=== PATIENT | male | born 1955 | race Caucasian/White ===

== ENCOUNTER → 2016-09-11 | Outpatient (CLI) | payer BC ==
[~2016-09-11] MED LIST: B-CO1CAP5 PO; FISHOIL PO; LOSA1TAB38 PO; MULTTAB PO; PANT1TAB48 PO
--- NOTE | 2016-09-11 11:45 | DIAGNOSTIC IMAGING REPORT ---
CHEST 2 VIEWS ROUTINE CLINICAL HISTORY: R05 [id number] dyspnea COMPARISON STUDY: 02/03/2015 FINDINGS: The bones soft tissues and hemidiaphragms are normal. The cardiomediastinal silhouette is normal. The lungs are clear. The pulmonary vasculature is normal. IMPRESSION: Negative chest. Electronically signed by: Maximilian Chu M.D. 09/11/2016 11:44 AM Dictated Date/Time: 09/11/2016 11:43 AM
== END | disposition home or self-care (01) ==
LOC: C.RADBC 11:20
PROVIDERS: ATTEND Internal Medicine Geriatric Medicine
DX: R05 Cough (principal)

== ENCOUNTER → 2017-10-26 | Outpatient (CLI) | payer BC ==
[~2017-10-26] MED LIST changes: +PANT1TAB3 PO; -PANT1TAB48 PO
[2017-10-26 13:48] LABS: HEMOGLOBIN A1C 6.5 % (4.5-5.6)
[2017-10-26 14:05] LABS: ALBUMIN 3.6 gm/dl (3.4-5.0); ALKALINE PHOSPHATASE 74 U/L (45-117); ALT/SGPT 41 U/L (12-78); AST/SGOT 21 U/L (15-37); BLOOD UREA NITROGEN 24 mg/dl (7-18); CALCIUM 9.1 mg/dl (8.5-10.1); CARBON DIOXIDE 25 mmol/L (21-32); CHOLESTEROL 206 mg/dl (0-200); CREATININE 1.59 mg/dl (0.60-1.40); GLUCOSE 121 mg/dl (70-99); LDL CHOLESTEROL CALCULATED 125 mg/dl; POTASSIUM 3.7 mmol/L (3.5-5.1); SODIUM 138 mmol/L (136-145); TOTAL PROTEIN 7.4 gm/dl (6.4-8.2)
== END | disposition home or self-care (01) ==
LOC: C.LABBC 10:25
PROVIDERS: ATTEND Family Medicine Adult Medicine
DX: Z00.00 Encounter for general adult medical examination without abnormal findings (principal); I10 Essential (primary) hypertension; E78.5 Hyperlipidemia, unspecified; R73.03 Prediabetes; C61 Malignant neoplasm of prostate; M79.673 Pain in unspecified foot

== ENCOUNTER 2019-06-19 16:39 | Observation (INO) ==
[2019-06-19] MEDS ORDERED: SODIUM CHLORIDE 0.9% 1000ML 1,000 ML IV ONE (16:53)
--- NOTE | 2019-06-19 16:57 | Emergency Department Note ---
Impression & Plan Chest pain on exertion, Hypertension, Hyperlipidemia, Family history of coronary artery disease ED Provider Note NAME: DIA CHIRINOS AGE: 64 SEX: M ARRIVES VIA: Ambulance INFORMANT: Patient, ED PROVIDER(S): Kris Shultz MD CHIEF COMPLAINT: Chest pain PLAN: Disposition: Admit MEDICAL DECISION MAKING: The patient is a pleasant 64-year-old gentleman with a past medical history of hypertension, hyperlipidemia, prediabetes, spinal stenosis, family history of early coronary disease who presents emergency department after having severe substernal chest pain and shortness of breath that came on suddenly with near syncope/dizziness prior to arrival seen by EMS and given aspirin and nitro with resolution of symptoms. The patient reports over the past week he has had exertional chest pain and fullness in his neck that is new. The patient denies any recent fevers, chills, cough, congestion, nausea, vomiting, diarrhea. Denies any recent high risk travel related to the novel coronavirus. He denies any known contacts with lab confirmed individuals. On arrival the patient is in no acute distress, afebrile stable vital signs. His EKG is normal sinus without overt ST elevation or depression. While the patient reports he is asymptomatic at this time he did have a 1-2-second episode where he felt a "twinge" that resolved spontaneously. Repeat EKG after approximately 20 minutes was unchanged. Chest x-ray negative for acute process. WBC and platelets within normal limits. H/H 13.3/30.6 similar to prior range of values. Chemistry without acidosis. Creatinine 1.5 similar to prior range of values. Electrolytes and LFTs unremarkable. Troponin negative/undetectable. Given the patient's risk factors including family history, Heart score 6, moderate risk, reasonable to admit the patient for further evaluation. The patient is agreeable with this. Case was discussed with Dr. Coronel, [facility] [place] hospitalist, who will evaluate the patient for admission. Triage Nursing notes reviewed and agree them. Prior medical records reviewed Vital Signs: reviewed and remarkable for no significant abnormalities Differential diagnosis: Cardiac ischemia, aortic dissection, pulmonary embolism, pneumothorax, pneumonia, pericarditis, myocarditis, esophageal rupture, GERD, cholecystitis, pancreatitis, musculoskeletal, as well as other pathologies. ER treatment provided: See below. Diagnostics interpreted by me: ECG #1: Normal sinus rhythm with sinus arrhythmia, 60 bpm, normal axis, no ectopy, no overt ST elevation or depression. QTc 440, QRS 104. ECG #2: Sinus bradycardia, 57 bpm, normal axis, no ectopy, no overt ST elevation or depression. QTc 436, QRS 104. No significant change from prior. Cardiac Monitoring: Normal sinus rhythm, 80 bpm, no ectopy. Laboratory studies: See below Imaging studies: XR chest 1V portable CLINICAL HISTORY: Chest Pain pain COMPARISON STUDY: 02/03/2015 FINDINGS: The bones soft tissues and hemidiaphragms are normal. The cardiomediastinal silhouette is normal. The lungs are clear. The pulmonary vasculature is normal. IMPRESSION: Negative chest. Consultation(s): None HPI: The patient is a pleasant 64-year-old gentleman with a past medical history of hypertension, hyperlipidemia, prediabetes, spinal stenosis, family history of early coronary disease who presents emergency department after having severe substernal chest pain and shortness of breath that came on suddenly with near syncope/dizziness prior to arrival seen by EMS and given aspirin and nitro with resolution of symptoms. The patient reports over the past week he has had exertional chest pain and fullness in his neck that is new. The patient denies any recent fevers, chills, cough, congestion, nausea, vomiting, diarrhea. Denies any recent high risk travel related to the novel coronavirus. He denies any known contacts with lab confirmed individuals. ROS: See above HPI for pertinent positives & negatives. A total of 10 systems reviewed and were otherwise negative. PAST MEDICAL HISTORY:See Below PAST SURGICAL HISTORY:See Below FAMILY HISTORY:See Below SOCIAL HISTORY:See Below HOME MEDICATIONS:See Below ALLERGIES:See Below VITALS:See Below PHYSICAL EXAMINATION: GENERAL: Awake, alert, anxious-appearing, in no distress HENT: Normocephalic, atraumatic. Oropharynx with dry mucous membranes and otherwise unremarkable. EYES: Normal conjunctiva. Sclera non-icteric. NECK: Supple. No nuchal rigidity. FROM. No JVD. RESPIRATORY: Clear to auscultation. CARDIAC: Regular rate, normal rhythm. Extremities warm and well perfused. Pulses equal. ABDOMEN: Soft, non-distended. No tenderness to palpation. No rebound or guarding. No masses. RECTAL: Deferred. MUSCULOSKELETAL: Chest examination reveals no tenderness. The back is symmetrical on inspection without obvious abnormality. There is no CVA tenderness to palpation. No joint edema. LOWER EXTREMITIES: Calves are equal size bilaterally and non-tender. No edema. No discoloration. NEURO: Normal sensorium. No sensory or motor deficits noted. SKIN: No rash or jaundice noted. 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 Na Required: No Beliefs That Will Affect Care: None marital status: Current Living Situation: Spouse current occupational status: employed Other Information That Helps Us Care for You: No Feels Safe at Home: Yes Safety Concerns: Feels Safe At This Time Smoking Status: Never smoker Hx Alcohol Use: Yes Alcohol type: beer, wine and hard liquor Alcohol Intake Frequency: Rarely Hx Substance Use: No Childhood Exposure to Second-Hand Smoke: Yes Dental Care, Regularly: Yes Physical Activity Frequency: Does not Exercise Seatbelt Use: always Sunscreen Use: Yes Allergies Allergies Allergy/AdvReac Type Severity Reaction Status Date / Time No Known Allergies Allergy Unknown Verified 06/19/19 17:46 Home Meds Home Medications Medication Instructions Recorded Confirmed multivit with min-folic 1 tab PO DAILY 10/18/18 06/19/19 acid-lutein 400 mcg-250 mcg chewable tablet omega-3 fatty acids-fish oil 360 1 cap PO DAILY 10/18/18 06/19/19 mg-1,200 mg capsule vitamin B complex 1 cap PO DAILY 10/18/18 06/19/19 atorvastatin 20 mg PO QAM 06/19/19 06/19/19 Previous Rx's Medication Instructions Recorded amlodipine 5 mg tablet 2.5 mg PO QAM #90 tab 03/18/20 losartan 100 mg tablet 100 mg PO DAILY #90 tab 06/04/19 pantoprazole 40 mg tablet,delayed 40 mg PO QDB #90 tab 06/04/19 release Results & Data (ED) Vital Signs Vital Signs - 24 hr 06/19/19 16:43 06/19/19 16:52 06/19/19 17:00 Temperature Temperature Source Pulse Rate 71 70 Pulse Rate from SpO2 Sensor 70 68 Respiratory Rate 22 18 Blood Pressure 151/85 H 138/75 Blood Pressure Mean 105 97 Pulse Oximetry 99 99 Oxygen Delivery Method Room Air Sepsis Recent Fever Within 48 Hours Sepsis Action Taken by Nursing 06/19/19 17:07 06/19/19 17:30 06/19/19 18:00 Temperature 36.8 C Temperature Source Oral Pulse Rate 66 61 63 Pulse Rate from SpO2 Sensor 65 64 Respiratory Rate 20 16 12 Blood Pressure 151/85 H 130/71 143/75 H Blood Pressure Mean 107 80 94 Pulse Oximetry 99 96 97 Oxygen Delivery Method Room Air Sepsis Recent Fever Within 48 Hours No Sepsis Action Taken by Nursing No Action Required 06/19/19 18:30 06/19/19 19:00 Temperature Temperature Source Pulse Rate 70 62 Pulse Rate from SpO2 Sensor 70 Respiratory Rate 16 12 Blood Pressure 163/82 H 143/78 H Blood Pressure Mean 104 96 Pulse Oximetry 98 Oxygen Delivery Method Sepsis Recent Fever Within 48 Hours Sepsis Action Taken by Nursing Laboratory Data Attestation: I reviewed the patient's lab results. Result diagrams: 06/19/19 16:55 06/19/19 16:55 Lab Results 06/19/19 06/19/19 06/19/19 Range/Units 16:55 16:55 16:55 WBC 5.90 (4.8-10.8) K/uL RBC 4.35 L (4.7-6.1) M/uL Hgb 13.3 L (14.0-18.0) g/dL Hct 38.6 L (42-52) % MCV 88.7 (80-100) fL MCH 30.6 (25-34) pg MCHC 34.5 (32-36) g/dL RDW Std Deviation 46.6 H (36.4-46.3) fL RDW Coeff of [place] 14.3 (11.5-14.5) % Plt Count 191 (130-400) K/uL MPV 10.3 (7.4-10.4) fL Immature Gran % (Auto) 0.0 % Neut % (Auto) 73.4 % Lymph % (Auto) 15.6 % [place] % (Auto) 8.6 % Eos % (Auto) 1.7 % Baso % (Auto) 0.7 % Immature Gran # (Auto) 0.00 (0.00-0.02) K/uL Neut # (Auto) 4.33 (1.4-6.5) K/uL Lymph # (Auto) 0.92 L (1.2-3.4) K/uL [place] # (Auto) 0.51 (0.11-0.59) K/uL Eos # (Auto) 0.10 (0-0.5) K/uL Baso # (Auto) 0.04 (0-0.2) K/uL PT 11.8 (9.0-12.0) Seconds INR 1.1 (0.9-1.1) APTT 23.4 (21.0-31.0) Seconds PTT Ratio 0.8 Sodium 143 (136-145) mmol/L Potassium 3.6 (3.5-5.1) mmol/L Chloride 113 H (98-107) mmol/L Carbon Dioxide 24 (21-32) mmol/L Anion Gap 5.0 (3-11) BUN 21 H (7-18) mg/dl Creatinine 1.59 H (0.6-1.4) mg/dl Est Cr Clr Drug Dosing 48.7 ml/min Est GFR ( Amer) 51.7 Est GFR (Non-Af Amer) 44.6 BUN/Creatinine Ratio 13.1 (10-20) Glucose 144 H (70-99) mg/dl Calcium 8.6 (8.5-10.1) mg/dl Phosphorus 2.6 (2.5-4.9) mg/dl Magnesium 2.4 (1.8-2.4) mg/dl Total Bilirubin 1.5 H (0.2-1) mg/dl AST 15 (15-37) U/L ALT 29 (12-78) U/L Alkaline Phosphatase 53 (45-117) U/L Troponin I < 0.015 (0-0.045) ng/ml Total Protein 6.3 L (6.4-8.2) gm/dl Albumin 3.5 (3.4-5.0) gm/dl Globulin 2.8 (2.5-4.0) gm/dl Albumin/Globulin Ratio 1.2 (0.9-2) Lipase 101 (73-393) U/L TSH 0.528 (0.300-4.500) uIu/ml Hepatitis C Ab Screen (Neg) 06/19/19 Range/Units 16:55 WBC (4.8-10.8) K/uL RBC (4.7-6.1) M/uL Hgb (14.0-18.0) g/dL Hct (42-52) % MCV (80-100) fL MCH (25-34) pg MCHC (32-36) g/dL RDW Std Deviation (36.4-46.3) fL RDW Coeff of [place] (11.5-14.5) % Plt Count (130-400) K/uL MPV (7.4-10.4) fL Immature Gran % (Auto) % Neut % (Auto) % Lymph % (Auto) % [place] % (Auto) % Eos % (Auto) % Baso % (Auto) % Immature Gran # (Auto) (0.00-0.02) K/uL Neut # (Auto) (1.4-6.5) K/uL Lymph # (Auto) (1.2-3.4) K/uL [place] # (Auto) (0.11-0.59) K/uL Eos # (Auto) (0-0.5) K/uL Baso # (Auto) (0-0.2) K/uL PT (9.0-12.0) Seconds INR (0.9-1.1) APTT (21.0-31.0) Seconds PTT Ratio Sodium (136-145) mmol/L Potassium (3.5-5.1) mmol/L Chloride (98-107) mmol/L Carbon Dioxide (21-32) mmol/L Anion Gap (3-11) BUN (7-18) mg/dl Creatinine (0.6-1.4) mg/dl Est Cr Clr Drug Dosing ml/min Est GFR ( Amer) Est GFR (Non-Af Amer) BUN/Creatinine Ratio (10-20) Glucose (70-99) mg/dl Calcium (8.5-10.1) mg/dl Phosphorus (2.5-4.9) mg/dl Magnesium (1.8-2.4) mg/dl Total Bilirubin (0.2-1) mg/dl AST (15-37) U/L ALT (12-78) U/L Alkaline Phosphatase (45-117) U/L Troponin I (0-0.045) ng/ml Total Protein (6.4-8.2) gm/dl Albumin (3.4-5.0) gm/dl Globulin (2.5-4.0) gm/dl Albumin/Globulin Ratio (0.9-2) Lipase (73-393) U/L TSH (0.300-4.500) uIu/ml Hepatitis C Ab Screen Neg (Neg) Administered Medications Lactated Ringer's (Lr) 1,000 mls @ 80 mls/hr IV .[id number] Stop: 07/19/19 20:32 Last Admin: 06/19/19 21:35 Dose: 80 mls/hr Documented by: [id number] Discontinued Medications Clopidogrel Bisulfate (Plavix) 600 mg PO NOW STA Stop: 06/19/19 20:34 Last Admin: 06/19/19 21:35 Dose: 600 mg Documented by: [id number] Sodium Chloride (Nss 1000ml) 1,000 mls @ 999 mls/hr IV .[id number] ONE Stop: 06/19/19 17:53 Last Infusion: 06/19/19 18:40 Dose: 0 mls/hr Documented by: [id number] Admin: 06/19/19 17:30 Dose: 999 mls/hr Documented by: [id number] Blood Pressure Blood Pressure Findings: Elevated blood pressure Blood Pressure Disposition: further management by hospitalist Discharge Plan Visit Data *Final* Discharge Date/Time: 06/19/19 19:54 Chief Complaint: Chest Pain ED Provider: Kris Shultz Discharge Problem: Chest pain on exertion, Hypertension, Hyperlipidemia, Family history of coronary artery disease Patient Disposition: Admitted As Inpatient Discharge Instructions Interventions: ED Discharge Assessment Last Done: 06/19/19 19:54
--- NOTE | 2019-06-19 17:04 | XRay Report ---
XR chest 1V portable CLINICAL HISTORY: Chest Pain pain COMPARISON STUDY: 02/03/2015 FINDINGS: The bones soft tissues and hemidiaphragms are normal. The cardiomediastinal silhouette is n ormal. The lungs are clear. The pulmonary vasculature is normal. IMPRESSION: Negative chest. ACT 112: Negative or not required by law. The above report was generated using voice recognition software. It may contain grammatical, syntax or spelling errors. Electronically signed by: Maximilian Chu M.D. 06/19/2019 5:02 PM
[2019-06-19 17:06] LABS: Basophils # (auto) 0.04 K/uL (0-0.2); Basophils % (auto) 0.7 %; Eosinophils % (auto) 1.7 %; Hematocrit (blood only) 38.6 % (42-52); Hemoglobin 13.3 g/dL (14.0-18.0); Lymphocytes # (auto) 0.92 K/uL (1.2-3.4); Lymphocytes % (auto) 15.6 %; Mean Corpuscular Hemoglobin 30.6 pg (25-34); Mean Corpuscular Hgb Conc 34.5 g/dL (32-36); Mean Corpuscular Volume 88.7 fL (80-100); Mean Platelet Volume 10.3 fL (7.4-10.4); Monocytes # (auto) 0.51 K/uL (0.11-0.59); Monocytes % (auto) 8.6 %; Neutrophils # (auto) 4.33 K/uL (1.4-6.5); Neutrophils % (auto) 73.4 %; Platelet Count 191 K/uL (130-400); RDW Coefficient of Variation 14.3 % (11.5-14.5); RDW Standard Deviation 46.6 fL (36.4-46.3); Red Blood Count 4.35 M/uL (4.7-6.1)
[2019-06-19 17:21] LABS: Alanine Aminotransferase 29 U/L (12-78); Albumin Level 3.5 gm/dl (3.4-5.0); Aspartate Aminotransferase 15 U/L (15-37); BUN Creatinine Ratio 13.1 (10-20); Blood Urea Nitrogen 21 mg/dl (7-18); Calcium 8.6 mg/dl (8.5-10.1); Carbon Dioxide 24 mmol/L (21-32); Chloride 113 mmol/L (98-107); Creatinine Clr Calc Pharmacy 48.7 ml/min; Est GFR (African American) 51.7; Est GFR (Non-African American) 44.6; Glucose 144 mg/dl (70-99); Lipase 101 U/L (73-393); Magnesium 2.4 mg/dl (1.8-2.4); Potassium 3.6 mmol/L (3.5-5.1); Sodium 143 mmol/L (136-145)
[2019-06-19 17:22] LABS: INR 1.1 (0.9-1.1); Partial Thromboplastin Ratio 0.8; Partial Thromboplastin Time 23.4 Seconds (21.0-31.0); Prothrombin Time 11.8 Seconds (9.0-12.0)
[2019-06-19 17:32] LABS: Albumin Globulin Ratio 1.2 (0.9-2); Alkaline Phosphatase 53 U/L (45-117); Bilirubin,Total 1.5 mg/dl (0.2-1); Globulin 2.8 gm/dl (2.5-4.0); Phosphorus 2.6 mg/dl (2.5-4.9); Thyroid Stimulating Hormone 0.528 uIu/ml (0.300-4.500); Total Protein 6.3 gm/dl (6.4-8.2); Troponin I < 0.015 ng/ml (0-0.045)
--- NOTE | 2019-06-19 18:53 | History & Physical Report ---
Date of Service June 19, 2019 Assessment & Plan (1) Chest pain: Chest pain sounds fairly convincing for anginal symptoms. The event today could be an escalation of his stable angina vs. increasingly unstable angina. Fortunately, his EKG and troponin both do not indicate acute ischemia. - Discussed with Dr. Anderson this evening -> Will load with Plavix 600 mg once and trend troponins/EKGs - If he bumps a troponin, will start heparin gtt for presumed NSTEMI. Will be made NPO @ midnight in case he needs a cath. - If troponin remains stable, will have cardiology evaluate him in the morning to consider cath vs. exercise stress echo. - Continue ASA 81mg & statin. Will defer beta-stanford at this time for HR in the 50s already. (2) Hypertension: BP is 170/85 in the setting of high stress and anxiety over work and his symptoms. - Continue home amlodipine and losartan - Monitor (3) Hyperlipidemia: - Continue statin - Consider higher dose if he has no contraindications given risk factors for CAD (4) GERD (gastroesophageal reflux disease): Had a history of an ulcer ~10-15 years ago while on aspirin. - Continue PPI - Monitor for symptoms. (5) DVT prophylaxis: SCDs - Low DVT risk per admission calculator History of Present Illness Primary Care Provider: Torey Glasgow MD 64yo M w/ hx of HTN, HLD who presents with anginal symptoms. He reports that he has been under more stress at work and working more. He reports that he has noted increasing shortness of breath and some left jaw pain that has occurred with walking up and down steps; however, it quickly has self-resolved. This afternoon, he reports that he was at work and was physically active at work. He was going up and down steps. In the afternoon, he had an episode of chest pain with radiation to the left jaw and left armpit. He was lightheaded at the time and fell/leaned against a wall for support. He also notes some palpitations and nausea at the time, though he has had a somewhat upset stomach from stress over the last few weeks anyhow. EMS was called and administered nitroglycerin and aspirin which relieved the pain. He was then taken to the hospital. He had a brief "twinge" of chest pain in the ED, but is presently chest pain free. He has never had any cardiac testing in the past. He has had multiple family members with cardiac events in the 50s. Allergies Allergy/AdvReac Type Severity Reaction Status Date / Time No Known Allergies Allergy Unknown Verified 06/19/19 17:46 Home Medications Home Medications Medication Instructions Recorded Confirmed Type multivit with min-folic 1 tab PO DAILY 10/18/18 06/19/19 History acid-lutein 400 mcg-250 mcg chewable tablet omega-3 fatty acids-fish oil 360 1 cap PO DAILY 10/18/18 06/19/19 History mg-1,200 mg capsule vitamin B complex 1 cap PO DAILY 10/18/18 06/19/19 History amlodipine 5 mg tablet 2.5 mg PO QAM #90 tab 06/04/19 06/19/19 Rx losartan 100 mg tablet 100 mg PO DAILY #90 tab 06/04/19 06/19/19 Rx pantoprazole 40 mg tablet,delayed 40 mg PO QDB #90 tab 06/04/19 06/19/19 Rx release atorvastatin 20 mg PO QAM 06/19/19 06/19/19 History Past Med/Surg History Medical History Colonic polyp (Chronic) Duodenal stenosis (Chronic) GERD (gastroesophageal reflux disease) (Chronic) Hyperlipidemia (Chronic) Hypertension (Chronic) Pre-diabetes (Chronic) Prostate cancer (Chronic) Surgical History History of bunionectomy History of prostatectomy Hx of foot surgery Family History Mother Hypertension Denies family history of Ovarian cancer Prostate cancer Breast cancer Lung cancer Colorectal cancer Social History Preferred Language: Stateless Visual Impairment: Limited Hearing Ability: Normal Hand Umbrella Tipper Required: No Beliefs That Will Affect Care: None marital status: Current Living Situation: Spouse current occupational status: employed Other Information That Helps Us Care for You: No Feels Safe at Home: Yes Safety Concerns: Feels Safe At This Time Smoking Status: Never smoker Hx Alcohol Use: Yes Alcohol type: beer, wine and hard liquor Alcohol Intake Frequency: Rarely Hx Substance Use: No Childhood Exposure to Second-Hand Smoke: Yes Dental Care, Regularly: Yes Physical Activity Frequency: Does not Exercise Seatbelt Use: always Sunscreen Use: Yes Review of Systems Review of Systems: All systems reviewed & are unremarkable except as noted in HPI & below Physical Exam Constitutional: WD/WN, vitals as above Eyes: EOM intact bilaterally; no conjunctival abnormality ENMT: external ear and nose normal, oropharynx normal Neck: trachea midline, no thyromegaly normal visual inspection Respiratory: normal respiratory effort, lungs clear to auscultation no respiratory distress Cardiovascular: RRR, no murmur, no edema Gastrointestinal (Abdomen): Inspection/Auscultation: abdomen normal to inspection; abdomen not distended Musculoskeletal: no cyanosis or clubbing, extremities motor strength 5/5 Skin: no rashes, warm and dry Neurologic: moves all extremities and awake Psychiatric: Orientation: alert, oriented to person and cooperative Results & Data Results & Data ([facility]) Vital Signs (Past 12 Hours) Vital Signs Temp Pulse Resp BP Pulse Ox 06/19/19 18:30 70 16 163/82 H 98 06/19/19 18:00 63 12 143/75 H 97 06/19/19 17:30 61 16 130/71 96 06/19/19 17:07 36.8 C 66 20 151/85 H 99 06/19/19 17:00 70 18 138/75 99 06/19/19 16:43 71 22 151/85 H 99 PG Care Time/CCT Total # of Minutes Spent Total Time Spent with Patient: Total time spent is greater than 50% in coordination of care (as documented) at patient's floor/unit and/or counseling patient: Coding Level of Care Code 23072 OBS Care - Level 3 Diagnoses Chest pain R07.9 Hypertension I10 Hypertension type: essential hypertension Hyperlipidemia E78.2 Hyperlipidemia type: mixed hyperlipidemia GERD (gastroesophageal reflux disease) K21.9 DVT prophylaxis Z29.9 (1) Hypertension Hypertension type: essential hypertension Qualified Code(s): I10 - Essential (primary) hypertension (2) Hyperlipidemia Hyperlipidemia type: mixed hyperlipidemia Qualified Code(s): E78.2 - Mixed hyperlipidemia
[2019-06-19] MEDS ORDERED: ACETAMINOPHEN 325 MG TAB PO PRN (20:33)
[2019-06-19] MEDS ORDERED: CLOPIDOGREL BISULFATE 300 MG TAB PO STA (20:33)
[2019-06-19] MEDS ORDERED: ONDANSETRON INJ 2 MG/ML 2 ML VIAL IV PRN (20:33)
[2019-06-19] MEDS ORDERED: INFLUENZA VACCINE HIGH DOSE 65+ 0.5 ML SYR IM ONE (20:49)
[2019-06-19] MEDS ORDERED: INFLUENZA ADMINISTRATION CHARGE ONE (20:49)
[2019-06-19] MEDS: LACTATED RINGER'S 1,000 ML IV SCH (21:35)
[2019-06-20 06:06] LABS: Hematocrit (blood only) 37.7 % (42-52); Hemoglobin 12.6 g/dL (14.0-18.0); Mean Corpuscular Hemoglobin 29.9 pg (25-34); Mean Corpuscular Hgb Conc 33.4 g/dL (32-36); Mean Corpuscular Volume 89.3 fL (80-100); Mean Platelet Volume 10.3 fL (7.4-10.4); Platelet Count 165 K/uL (130-400); RDW Coefficient of Variation 14.3 % (11.5-14.5); RDW Standard Deviation 47.1 fL (36.4-46.3); Red Blood Count 4.22 M/uL (4.7-6.1); White Blood Count 5.59 K/uL (4.8-10.8)
[2019-06-20 06:38] LABS: BUN Creatinine Ratio 16.7 (10-20); Blood Urea Nitrogen 19 mg/dl (7-18); Calcium 8.4 mg/dl (8.5-10.1); Carbon Dioxide 28 mmol/L (21-32); Chloride 112 mmol/L (98-107); Creatinine Clr Calc Pharmacy 69.7 ml/min; Est GFR (African American) 79.8; Est GFR (Non-African American) 68.8; Glucose 96 mg/dl (70-99); Magnesium 2.4 mg/dl (1.8-2.4); Potassium 3.6 mmol/L (3.5-5.1); Sodium 143 mmol/L (136-145)
[2019-06-20 06:42] LABS: Phosphorus 3.8 mg/dl (2.5-4.9); Troponin I < 0.015 ng/ml (0-0.045)
[2019-06-20] MEDS ORDERED: PANTOprazole 40 MG TAB PO SCH (07:30)
[2019-06-20] MEDS: LACTATED RINGER'S 1,000 ML IV SCH (08:22)
[2019-06-20] MEDS ORDERED: AMLODIPINE BESYLATE 5 MG TAB PO SCH (09:00)
[2019-06-20] MEDS ORDERED: LOSARTAN POTASSIUM 50 MG TAB PO SCH (09:00)
[2019-06-20] MEDS ORDERED: ATORVASTATIN 20 MG TAB PO SCH (09:00)
[2019-06-20] MEDS ORDERED: ASPIRIN 81 MG ECTAB PO SCH (09:00)
--- NOTE | 2019-06-20 12:55 | Cardiology Consultation ---
Date of Consultation June 20, 2019 Assessment & Plan (1) Chest pain: The patient's description of chest discomfort has typical and atypical features of angina pectoris. Will investigate this further with a stress echocardiogram. Fortunately, EKGs and troponins are unremarkable. (2) Hypertension: Adequate control on current regimen. (3) Hyperlipidemia: Continue atorvastatin. History of Present Illness Attending Physician: Lamonte Egan DO History of Present Illness Mr. Lui is a 64-year-old male admitted with a chest pain syndrome yesterday. This consultation was ordered to assist in his management. The patient was in his usual state of health until yesterday afternoon. The patient was at work and began to feel anxious due to a stressful situation. The patient walked to his desk and sat down in the chair. He then the sensation of fatigue and he lowered himself to the ground. While lying on the floor, he noticed left-sided chest discomfort which she describes as cat claws in the inner wall of my chest. The patient felt that his discomfort may have radiated to his jaw. Total duration of his discomfort was less than 15 minutes. Over the last several weeks, the patient has been more short of breath with physical activity such as climbing stairs. He has not experienced any exertional angina pectoris. He further denies syncope, presyncope, PND, orthopnea, palpitations, lower extremity edema, and claudication. The patient has never known of a cardiac event. He has never had a cardiac catheterization. Did have a stress test several years ago which was normal. Currently, patient is resting comfortably in bed without complaints. Past medical and surgical history 1. Hypertension 2. Hypercholesterolemia 3. Hyperglycemia 4. GERD 5. De's esophagus next 6. Duodenal stenosis 7. Nephrolithiasis 8. Colonic polyps 9. Prostate carcinoma 10. 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 Allergies Allergy/AdvReac Type Severity Reaction Status Date / Time No Known Allergies Allergy Unknown Verified 06/19/19 17:46 Home Medications Home Medications Medication Instructions Recorded Confirmed Type multivit with min-folic 1 tab PO DAILY 10/18/18 06/19/19 History acid-lutein 400 mcg-250 mcg chewable tablet omega-3 fatty acids-fish oil 360 1 cap PO DAILY 10/18/18 06/19/19 History mg-1,200 mg capsule vitamin B complex 1 cap PO DAILY 10/18/18 06/19/19 History amlodipine 5 mg tablet 2.5 mg PO QAM #90 tab 06/04/19 06/19/19 Rx losartan 100 mg tablet 100 mg PO DAILY #90 tab 06/04/19 06/19/19 Rx pantoprazole 40 mg tablet,delayed 40 mg PO QDB #90 tab 06/04/19 06/19/19 Rx release atorvastatin 20 mg PO QAM 06/19/19 06/19/19 History Patient History Medical History Colonic polyp (Chronic) Duodenal stenosis (Chronic) GERD (gastroesophageal reflux disease) (Chronic) Hyperlipidemia (Chronic) Hypertension (Chronic) Pre-diabetes (Chronic) Prostate cancer (Chronic) Surgical History History of bunionectomy History of prostatectomy Hx of foot surgery Family History Mother Hypertension Denies family history of Ovarian cancer Prostate cancer Breast cancer Lung cancer Colorectal cancer Social History Preferred Language: Syriac Visual Impairment: Limited Hearing Ability: Normal Title Attorney Required: No Beliefs That Will Affect Care: None marital status: Current Living Situation: Spouse current occupational status: employed Other Information That Helps Us Care for You: No Feels Safe at Home: Yes Safety Concerns: Feels Safe At This Time Smoking Status: Never smoker Hx Alcohol Use: Yes Alcohol type: beer, wine and hard liquor Alcohol Intake Frequency: Rarely Hx Substance Use: No Childhood Exposure to Second-Hand Smoke: Yes Dental Care, Regularly: Yes Physical Activity Frequency: Does not Exercise Seatbelt Use: always Sunscreen Use: Yes Physical Exam Physical Exam: In general this is a well-developed well-nourished [] in no acute distress. HEENT exam is negative. Neck is supple with full carotid upstrokes. There are no carotid bruits. Jugular venous pressure is flat at 90. There is no thyromegaly. Cardiovascular exam reveals a regular rhythm with a normal S1 and S2. No S3, S4, or murmurs are noted. Lungs are clear without rales, rhonchi, or wheezes. Abdomen is soft and nontender without bruits. Extremities reveal intact radial artery and posterior tibial pulses bilaterally. There is no peripheral edema. Results & Data ([facility]) Vital Signs (Past 12 Hours) Vital Signs Temp Pulse Resp BP Pulse Ox 06/20/19 07:24 36.5 C 58 L 16 143/79 H 97 06/20/19 04:00 36.3 C L 63 98 H 133/77 98 Laboratory Results CBC notes a hemoglobin of 12.6, hematocrit 37.7, white count 5.59, platelet count [id number]. Electrolytes note a sodium of 143, potassium 3.6, chloride 112, bicarb 20, BUN 19, creatinine 1.1, glucose of 96. Three troponin I levels are less than 0.015. Diagnostic Findings EKG notes normal sinus rhythm without abnormalities. Chest x-ray shows no acute disease. PG Care Time/CCT Total # of Minutes Spent Total Time Spent with Patient: Total time spent is greater than 50% in coordination of care (as documented) at patient's floor/unit and/or counseling patient: Coding Level of Care Code 02160 OBS Care - Level 3 Diagnoses Chest pain R07.9 Hypertension I10 Hyperlipidemia E78.5
--- NOTE | 2019-06-20 14:27 | XCELERA ---
[id number] \\[id number]
--- NOTE | 2019-06-20 14:42 | Electrocardiogram Report ---
Test Reason : Blood Pressure : / mmHG Vent. Rate : 060 BPM Atrial Rate : 060 BPM P-R Int : 166 ms QRS Dur : 104 ms QT Int : 440 ms P-R-T Axes : 054 042 023 degrees QTc Int : 440 ms Poor data quality, interpretation may be adversely affected Normal sinus rhythm with sinus arrhythmia Normal ECG When compared with ECG of 03-FEB-2015 12:16, Vent. rate has decreased BY 41 BPM Confirmed by Luther Khan ([id number]) on 06/20/2019 2:42:01 PM Referred By: REFERRED SELF Confirmed By:Luther Khan
--- NOTE | 2019-06-20 14:42 | Electrocardiogram Report ---
Test Reason : Blood Pressure : / mmHG Vent. Rate : 057 BPM Atrial Rate : 057 BPM P-R Int : 180 ms QRS Dur : 104 ms QT Int : 448 ms P-R-T Axes : 041 028 017 degrees QTc Int : 436 ms Sinus bradycardia Otherwise normal ECG When compared with ECG of 19-JUN-2019 16:44, (unconfirmed) No significant change was found Confirmed by Luther Khan ([id number]) on 06/20/2019 2:42:37 PM Referred By: REFERRED SELF Confirmed By:Luther Khan
--- NOTE | 2019-06-20 14:50 | Electrocardiogram Report ---
Test Reason : Blood Pressure : / mmHG Vent. Rate : 064 BPM Atrial Rate : 064 BPM P-R Int : 212 ms QRS Dur : 102 ms QT Int : 456 ms P-R-T Axes : 062 038 039 degrees QTc Int : 470 ms Sinus rhythm with sinus arrhythmia with 1st degree A-V block Otherwise normal ECG When compared with ECG of 19-JUN-2019 17:03, (unconfirmed) MA interval has increased Confirmed by Luther Khan ([id number]) on 06/20/2019 2:50:04 PM Referred By: REFERRED SELF Confirmed By:Luther Khan
[2019-06-20] MEDS ORDERED: OPTIRAY 320 125ml IV PRN (18:13)
--- NOTE | 2019-06-20 18:40 | CT Scan Report ---
CHEST CTA for PULMONARY ARTERIES CT DOSE: 510.42 mGy.cm HISTORY: Dyspnea on exertion TECHNIQUE: Multiaxial CT images of the chest were performed following the intravenous administration of contrast to evaluate the pulmonary arteries. Maximal intensity projection images were also obtaine d. A dose lowering technique was utilized adhering to the principles of ALARA. COMPARISON STUDY: Chest CTA 01/27/2014. FINDINGS: Normal caliber thoracic aorta with no evidence for dissection. Normal caliber thoracic aort a with no evidence for dissection. No filling defects within the pulmonary arteries to suggest pulmon norm embolus. The heart is normal in size. No pleural or pericardial effusions. No mediastinal or miriam r lymphadenopathy. Limited views of the upper abdomen demonstrate normal liver, spleen, and adrenal g lands. Normal esophagus. The central airways are patent. No pneumothorax. The lungs are clear. No florencia picious lytic are blastic osseous lesions. IMPRESSION: No evidence for pulmonary embolus. ACT 112: Negative or not required by law. Electronically signed by: Bo Moy M.D. 06/20/2019 6:38 PM
--- NOTE | 2019-06-20 18:56 | Discharge Summary ---
Date of Service June 20, 2019 Admission HPI Per Admitting Provider 64yo M w/ hx of HTN, HLD who presents with anginal symptoms. He reports that he has been under more stress at work and working more. He reports that he has noted increasing shortness of breath and some left jaw pain that has occurred with walking up and down steps; however, it quickly has self-resolved. This afternoon, he reports that he was at work and was physically active at work. He was going up and down steps. In the afternoon, he had an episode of chest pain with radiation to the left jaw and left armpit. He was lightheaded at the time and fell/leaned against a wall for support. He also notes some palpitat ions and nausea at the time, though he has had a somewhat upset stomach from stress over the last few weeks anyhow. EMS was called and administered nitroglycerin and aspirin which relieved the pain. He was then taken to the hospital. He had a brief "twinge" of chest pain in the ED, but is presently chest pain free. He has never had any cardiac testing in the past. He has had multiple family members with cardiac events in the 50s. Principal Diagnosis chest pain, probable dehydration Discharge Exam gen pleasant nad heent nc at mmm breathing unlabored no accessory muscles good effort skin no rashes no pallor or icterus Discharge Data Allergies Allergy/AdvReac Type Severity Reaction Status Date / Time No Known Allergies Allergy Unknown Verified 06/19/19 17:46 Consultations 06/19/19 17:42 ED Decision to Admit Stat 06/19/19 20:33 Consult Cardiology Routine Ordered Studies 06/20/19 16:30 CT angio chest PE protocol Urgent Hospital Course (1) Chest pain: CP - ruled out for ME by enzymes, cardiology eval felt cath not necessary unless changes on stress -- did well (almost 10 mins) on stress testing no ischemia after further d/w pt he was also troubled by recent GONZALES - has had second hand smoke and occupational fume exposure, and minor PE also ddx --> CT chest - negative - stable for home --did note working extra recently and while getting enough sleep, probably not drinking enough - ?nonspecific sx from dehydration? could also consider PFTs as outpt if GONZALES persists but for now - home, PO fluids, better PO intake, time, watchful waiting (2) Hypertension: BP is 170/85 in the setting of high stress and anxiety over work and his symptoms. - Continue home amlodipine and losartan - outpt f/u (3) Hyperlipidemia: - Continue statin - Consider higher dose if he has no contraindications given risk factors for CAD - for outpt f/u (4) GERD (gastroesophageal reflux disease): Had a history of an ulcer ~10-15 years ago while on aspirin. - Continue PPI - Monitor for symptoms. (5) DVT prophylaxis: SCDs - Low DVT risk per admission calculator Total Time Total Time Spent Total Time Spent (In Minutes): <30 Discharge Plan Discharge Items Patient Disposition: Home - Self-Care Reason For Visit: CHEST PAIN Discharge Diagnosis: chest pain resolved - see below Activity: Resume your previous activity Non-emergency contact: Primary Care Provider Call non-emergency contact if: you have any medication questions and your symptoms worsen Follow-up/Referrals: Torey Glasgow MD [Primary Care Provider] - Diet: Regular Addtl Attending Provider Instructions: fortunately your symptoms did not appear to be cardiac related - your cardiac enzymes were negative and stress test was really reassuring, making the likeliho od this is a cardiac process quite low; to follow this, the CT scan of your chest showed normal lung tissue and no blood clots. with all of this negative, the most likely culprit for how you were feeling was getting behind on fluids/dehydrated, from working so much not not keeping up well with eating and drinking. Pending Studies at Discharge: No Stand-Alone Forms: [facility] [employer], Smoking Cessation Medications and DC Order Prescriptions: Continued omega-3 fatty acids-fish oil [Fish Oil] 360-1,200 mg capsule 1 cap PO DAILY RF: 0 Centrum Silver 400-250 mcg tablet,chewable 1 tab PO DAILY RF: 0 vitamin B complex capsule 1 cap PO DAILY RF: 0 amlodipine 5 mg tablet 2.5 mg PO QAM Qty: 90 RF: 3 pantoprazole 40 mg tablet,delayed release (DR/EC) 40 mg PO QDB Qty: 90 RF: 3 losartan 100 mg tablet 100 mg PO DAILY Qty: 90 RF: 3 atorvastatin 20 mg tablet 20 mg PO QAM RF: 0 Discharge Orders: Discharge Order (Routine); Ordered 06/20/19 Ordered By: Lamonte Egan Admission Data Admit Date/Time: 06/19/19 19:22 Attending Provider: Lamonte Egan Admit Provider: aNvid Coronel Primary Care Provider: Torey Glasgow Other Providers: Navid Coronel ; Luther Khan Other Interventions: Discharge Summary Assessment (RN) Last Done: 06/20/19 19:22 Coding Level of Care Code 41613 OBS Care - Discharge Diagnoses Chest pain R07.9 Hypertension I10 Hyperlipidemia E78.5 GERD (gastroesophageal reflux disease) K21.9 DVT prophylaxis Z29.9
== END 2019-06-20 20:08 | disposition home or self-care (01) ==
LOC: 2N 16:39 → ED 16:39 → SUATTDRO 19:22 → 2N 19:54

== ENCOUNTER 2022-07-20 17:25 | Observation (INO) ==
--- NOTE | 2022-07-20 17:45 | Emergency Department Note ---
ED Provider Note History of Present Illness Chief Complaint: Back Injury/Pain Stated Complaint: BACK PAIN THROUGH LEGS Time Seen by Provider: 07/20/22 17:44 This is a 67-year-old male with a history of hypertension, type 2 diabetes, aortic calcification, accompanied by his , who presents to the emergency department with acute low back pain that he noticed today when attempting to stand up from his chair at work. This pain is located in the middle of the low back and radiates around both hips and down both of his legs into the thigh regions. It is worse with changes in position. He feels like he is unable to fully stand up straight. Symptoms are slightly improved by leaning to the right. He did not feel any loose or pops when standing up, was feeling fine when he was sitting. He denies any other specific injuries, has not been lifting anything lately, no recent falls. He does have a history of back pain intermittently and states that he has been diagnosed with a bulging disc in his low lumbar spine in the past. This pain feels somewhat similar but much more severe than his normal flares of back pain. He denies any fevers, chills, numbness tingling or weakness in his lower extremities, loss of bowel or bladder function, saddle anesthesia. Has not taken anything for the pain yet. No history of back surgery. Does not take any blood thinners Home Medications Medication Instructions Recorded Confirmed Type multivit with min-folic 1 tab PO DAILY 10/18/18 07/20/22 History acid-lutein 400 mcg-250 mcg chewable tablet (Centrum Silver) omega-3 fatty acids-fish oil 360 1 cap PO DAILY 10/18/18 07/20/22 History mg-1,200 mg capsule (Fish Oil) vitamin B complex 1 cap PO DAILY 10/18/18 07/20/22 History ascorbic acid (vitamin C) 1,000 mg 1 gm PO DAILY 08/13/19 07/20/22 History tablet losartan 100 mg tablet 100 mg PO DAILY #90 tabs 07/05/21 07/20/22 Rx pantoprazole 40 mg tablet,delayed 40 mg PO QDB #90 tabs 07/05/21 07/20/22 Rx release cholecalciferol (vitamin D3) 25 25 mcg PO DAILY 11/01/21 07/20/22 History mcg (1,000 unit) capsule amlodipine 5 mg tablet 7.5 mg PO DAILY #135 tabs 04/24/22 07/20/22 Rx atorvastatin 40 mg tablet 40 mg PO DAILY #90 tabs 04/26/22 07/20/22 Rx metformin 500 mg tablet,extended 500 mg PO DAILY #90 tabs 04/26/22 07/20/22 Rx release 24hr Allergies Allergy/AdvReac Type Severity Reaction Status Date / Time No Known Allergies Allergy Unknown Verified 07/20/22 22:37 Past Med/Surg History Medical History Chest pain Colonic polyp Duodenal stenosis GERD (gastroesophageal reflux disease) Hyperlipidemia Hypertension Pre-diabetes Prostate cancer Unintentional weight loss Surgical History History of bunionectomy History of prostatectomy Hx of foot surgery Family History Mother Hypertension Denies family history of Ovarian cancer Prostate cancer Breast cancer Lung cancer Colorectal cancer Social History Smoking Status: Never smoker Second Hand Exposure: No; Do You Dip or Chew Tobacco: No; Hx Alcohol Use: Yes Alcohol type: beer, wine and hard liquor Alcohol Intake Frequency: Monthly or Less Hx Substance Use: No Preferred Language: Romanian Communication Ability: Effective Visual Impairment: Limited Hearing Ability: Normal Account Assistant Required: No Beliefs That Will Affect Care: None marital status: Current Living Situation: Spouse current occupational status: employed Feels Safe at Home: Yes Childhood Exposure to Second-Hand Smoke: Yes (mother) Diet: ideal protein, low carbohydrate and low salt caffeine: Yes Dental Care, Regularly: Yes Physical Activity Frequency: Does not Exercise Seatbelt Use: always Sunscreen Use: Yes Assistive Devices: None Physical Exam Vital Signs Vital Signs - 24 hr 07/20/22 17:30 07/20/22 21:57 07/20/22 21:58 Temperature 98.6 F Temperature Source Temporal Artery Scan Pulse Rate 67 64 Pulse Rate [Left Finger] 62 Pulse Rhythm [Left Finger] Regular Pulse Strength [Left Finger] Normal Respiratory Rate 18 16 Respiratory Effort / Characteristics Non-Labored Spontaneous Non-Labored Spontaneous Respiratory Depth Normal Normal Respiratory Pattern Regular Blood Pressure 166/90 H Blood Pressure [Left Arm] 160/86 H Blood Pressure Mean 115 Blood Pressure Mean [Left Arm] 110 Blood Pressure Position Sitting Pulse Oximetry 97 94 96 Oxygen Delivery Method Room Air Room Air Room Air Sepsis Recent Fever Within 48 Hours No Sepsis New/Unexplained Change in Mental Status No Sepsis Action Taken by Nursing No Action Required CONSTITUTIONAL: Well developed, well nourished, resting on the stretcher, h olding still to avoid changes in position secondary to back pain. Otherwise pleasant EYES: conjunctivae normal, extraocular muscles intact. NECK: Full active range of motion. RESPIRATORY: Breathing unlabored and symmetric. Lungs clear to auscultation bilaterally. No wheeze, rales, or rhonchi. CARDIOVASCULAR: Regular rate and rhythm. No murmurs, rubs, or gallops. DP pulses 2+ bilaterally. CHEST: Nontender, no crepitus. ABDOMEN: Normal bowel sounds. Soft, nontender, no peritonitis. No masses MUSCULOSKELETAL: Moves bilateral upper extremities at all joints without pain or difficulty. There is no midline thoracic tenderness. There is midline lumbar tenderness diffusely, as well as bilateral lumbar paraspinal muscular tenderness extending into the buttock musculature. There is significant pain in the low back elicited with any changes in position. Able to initiate active straight leg raise though this causes significant pain in the low back. There is a positive straight leg test bilaterally. SKIN: [place], warm, dry. No rash, or skin color changes in the back. NEUROLOGIC: Awake, alert, oriented. Gaze is conjugate. Face symmetric, speech normal. No sensory deficits in bilateral lower extremities. Patellar reflexes 2+ bilaterally. Strength 5+ with plantarflexion, dorsiflexion, EHL extension PSYCHIATRIC: Appropriate. Normal affect Course Administered Medications Discontinued Medications Dexamethasone Sodium Phosphate (DexamethasonePf 10 Mg/Ml Vial) 10 mg IV NOW ONE Stop: 07/20/22 22:10 Last Admin: 07/20/22 22:18 Dose: 10 mg Documented By: PHONG Diazepam (Diazepam 2 Mg Tablet) 2 mg PO NOW ONE Stop: 07/20/22 22:10 Last Admin: 07/20/22 22:18 Dose: 2 mg Documented By: PHONG Ioversol (Optiray 320 100ml) 89 ml IV ONCE ONE Stop: 07/20/22 19:57 Last Admin: 07/20/22 19:57 Dose: 89 ml Documented By: BRUNA Lidocaine (Lidocaine 5% 1 Patch) 2 patch TD NOW STA Stop: 07/20/22 18:16 Last Admin: 07/20/22 18:43 Dose: 2 patch Documented By: EWELINA Morphine Sulfate (Morphine Sulfate 4 Mg/Ml 1 Ml Carp\Vial) 4 mg IV NOW STA Stop: 07/20/22 18:11 Last Admin: 07/20/22 18:42 Dose: 4 mg Documented By: EWELINA Morphine Sulfate (Morphine Sulfate 4 Mg/Ml 1 Ml Carp\Vial) 4 mg IV NOW STA Stop: 07/20/22 22:10 Last Admin: 07/20/22 22:18 Dose: 4 mg Documented By: PHONG Medical Decision Making Differential Diagnosis Lumbar radiculopathy, fracture, disc herniation, disc bulge, renal colic, cauda equina syndrome, transverse myelitis, vascular aneurysm or rupture, among other pathology Medical Records Attestation: I reviewed the patient's medical records. Laboratory Data 07/20/22 18:30 07/20/22 18:30 Lab Results 07/20/22 07/20/22 Range/Units 18:30 18:30 WBC 7.67 (4.8-10.8) K/ul RBC 5.03 (4.70-6.10) M/uL Hgb 14.8 (14.0-18.0) g/dl Hct 43.5 (42.0-52.0) % MCV 86.5 (80.0-100.0) fL MCH 29.4 (25.0-34.0) pg MCHC 34.0 (32.0-36.0) g/dL RDW Std Deviation 44.5 (36.4-46.3) fL RDW Coeff of [place] 14.0 (11.5-14.5) % Plt Count 159 (130-400) K/uL MPV 11.5 (9.4-12.4) fL Immature Gran % (Auto) 0.4 % Neut % (Auto) 65.3 % Lymph % (Auto) 22.0 % [place] % (Auto) 6.9 % Eos % (Auto) 4.2 % Baso % (Auto) 1.2 % Neut # (Auto) 5.01 (1.40-6.50) K/uL Lymph # (Auto) 1.69 (1.2-3.4) K/uL [place] # (Auto) 0.53 (0.11-0.59) K/uL Eos # (Auto) 0.32 (0-0.50) K/uL Baso # (Auto) 0.09 (0-0.2) K/uL Immature Gran # (Auto) 0.03 (0.01-0.20) K/uL Sodium 139 (136-145) mmol/L Potassium 3.9 (3.5-5.1) mmol/L Chloride 104 (98-107) mmol/L Carbon Dioxide 27 (21-32) mmol/L Anion Gap 8 (3-11) BUN 22 (6-23) mg/dl Creatinine 1.20 (0.6-1.4) mg/dl Est Cr Clr Drug Dosing Not Reportable Est GFR ( Amer) 71.1 ml/min Est GFR (Non-Af Amer) 61.3 ml/min BUN/Creatinine Ratio 18.3 (10-20) Glucose 96 (70-99(Fasting)) mg/dl Calcium 9.6 (8.6-10.3) mg/dl Total Bilirubin 1.3 H (0.2-1.0) mg/dl AST 25 (13-39) U/L ALT 32 (7-52) U/L Alkaline Phosphatase 64 (34-104) U/L Total Protein 7.6 (6.0-8.3) gm/dl Albumin 4.5 (3.4-5.0) gm/dl Globulin 3.1 (2.5-4.0) gm/dl Albumin/Globulin Ratio 1.5 (0.9-2) Imaging Data Radiologist's Impression: Abdomen/Pelvis CT 07/20/22 18:10 Exam(s): CT ABDOMEN + PELVIS With Contrast IV Amt: 89ml EXAM: CT Abdomen and Pelvis With Intravenous Contrast CLINICAL HISTORY: Reason for exam: seemingly atraumatic lumbar radicular pain. TECHNIQUE: Axial computed tomography images of the abdomen and pelvis with intravenous contrast. CTDI is 10.15 mGy and DLP is 559.57 mGy-cm. Automated exposure control was utilized for the study. A dose lowering technique was utilized adhering to the principles of ALARA. CONTRAST: Patient received 89ml of IV contrast COMPARISON: CT abdomen/pelvis on 08/28/2019 FINDINGS: Lung bases: Unremarkable. No mass. No consolidation. ABDOMEN: Liver: Small inferior right hepatic cyst. Gallbladder and bile ducts: Prior cholecystectomy. Probable mild postcholecystectomy ductal ectasia. Pancreas: Unremarkable. No mass. No ductal dilation. Spleen: Unremarkable. No splenomegaly. Adrenals: Unremarkable. No mass. Kidneys and ureters: Mild scarring of the left kidney. No hydronephrosis or obstructing stone. Stomach and bowel: Diverticulosis without evidence of diverticulitis. Evaluation of the stomach is limited by underdistention. Moderate stool in the colon. No small bowel obstruction. PELVIS: Appendix: Normal appendix. Bladder: Unremarkable. No mass. Reproductive: Prostatectomy changes. Vasectomy clips. ABDOMEN and PELVIS: Intraperitoneal space: Unremarkable. No free air. No significant fluid collection. Bones/joints: Degenerative changes of the spine. Please see accompanying lumbar spine CT for further details. No acute fracture. No dislocation. Soft tissues: Small fat-containing bilateral inguinal hernias. Small fat-containing umbilical hernia. Vasculature: Phleboliths in the pelvis. Atherosclerotic changes of the vasculature. No aortic aneurysm or dissection. Lymph nodes: Unremarkable. No enlarged lymph nodes. IMPRESSION: No acute findings in the abdomen or pelvis. Degenerative changes of the spine. Please see accompanying lumbar spine CT for further details. Electronically signed by: Juan Pablo Eason M.D. 07/20/22 20:[address] 07/20/22 18:17 Exam(s): CT L SPINE With Contrast IV Amt: 89ml EXAM: CT Lumbar Spine With Intravenous Contrast CLINICAL HISTORY: Reason for exam: seemingly atraumatic lumbar radiculopathy. TECHNIQUE: Axial computed tomography images of the lumbar spine with intravenous contrast. CTDI is 10.15 mGy and DLP is 559.57 mGy-cm. Automated exposure control was utilized for the study. A dose lowering technique was utilized adhering to the principles of ALARA. CONTRAST: Patient received 89ml of IV contrast COMPARISON: Lumbar spine radiographs on 01/05/2020 FINDINGS: Bones: Normal alignment. No acute fracture. Irregularity of the endplates at L3-4 and inferior endplate of L4 may be secondary to degenerative changes. An infectious/inflammatory process such as discitis/osteomyelitis is not excluded. Irregularity of the endplates is present on the prior exam in 2019 but to a lesser extent. Disc spaces: No subluxation. Degenerative changes of the spine. Mild to moderate spinal canal stenosis at L3-4. Moderate spinal canal stenosis at L4-5. Moderate to severe neural foraminal stenoses at L3-4 and L4-5. Mild neural foraminal stenoses at L5-S1. Soft tissues: Normal. Other: Normal. IMPRESSION: 1. No acute traumatic abnormality. 2. Mild to moderate spinal canal stenosis at L3-4. Moderate spinal canal stenosis at L4-5. Moderate to severe neural foraminal stenoses at L3-4 and L4-5. Mild neural foraminal stenoses at L5-S1. 3. Irregularity of the endplates at L3-4 and inferior endplate of L4 may be secondary to degenerative changes. Irregularity of the endplates is present on the prior exam in 2020 but to a lesser extent. An infectious/inflammatory process such as discitis/osteomyelitis is not excluded. 4. Further evaluation could be performed with MRI if clinically indicated. Electronically signed by: Juan Pablo Eason M.D. 07/20/22 21:09 PM MDM Narrative 67-year-old male presents with acute atraumatic low back pain that began today with radiation into bilateral legs, worse with movement, improved by leaning to the right. He denies any red flag symptoms on review of systems. He is hypertensive initially, remainder of vitals are normal. He appears uncomfortable especially when changing positions. There is tenderness in the central lumbar spine as well as bilateral paraspinal musculature. He has a positive straight leg raise bilaterally. He is otherwise neurovascularly intact in bilateral lower extremities with good strength, sensation, perfusion, and reflexes. His abdominal exam is benign. Differential diagnosis above was considered. An IV was inserted and patient was treated with morphine and Lidoderm patches for pain. Labs: No leukocytosis or anemia. Normal renal function. No electrolyte disturbance. No transaminitis. CT of the abdomen and pelvis with IV contrast as well as lumbar recons was ob tained demonstrating no acute process in the abdomen or pelvis, however on the lumbar recons, this demonstrated moderate spinal canal stenosis as well as moderate to severe neural foraminal stenoses, as well as irregularity of several endplates which could be degenerative however this was read as unable to rule out discitis or osteomyelitis. Of note, these changes had been seen from exam in 2020. Clinically the patient does not have any risk factors for any infectious process in the spine, no fevers, I have a lower suspicion for this diagnosis. I reevaluated the patient several times and he stated that his back felt slightly less stiff, but anytime he changes position especially when having the CT scan he really did not feel much improvement in pain. I attempted to ambulate him and he had a very difficult time with ambulation could barely stand up straight, and expressed concern about going home especially navigating steps in his house. He was given a dose of Decadron, an additional dose of morphine as well as Valium. Case was discussed with ED attending Dr. Matthews who agrees the patient would benefit from inpatient management. I discussed the case with Dr. [facility] hospitalist group who agrees to admit the patient. She is comfortable with him not undergoing an emergent MRI while in the ED tonight but this is of consideration during his admission. Discharge Plan Visit Data Chief Complaint: Back Injury/Pain Stated Complaint: BACK PAIN THROUGH LEGS ED Provider: Lamonte Matthews ED Midlevel Provider: Joe Stratton Forms Stand Alone Forms: My [facility] Prescriptions Prescriptions: No Action pantoprazole 40 mg tablet,delayed release (DR/EC) 40 mg PO QDB Qty: 90 3RF losartan 100 mg tablet 100 mg PO DAILY Qty: 90 3RF amlodipine 5 mg tablet 7.5 mg PO DAILY Qty: 135 2RF atorvastatin 40 mg tablet 40 mg PO DAILY Qty: 90 3RF metformin 500 mg tablet extended release 24hr 500 mg PO DAILY Qty: 90 3RF cholecalciferol (vitamin D3) 25 mcg (1,000 unit) capsule 25 mcg PO DAILY Rx Instructions: PT UNSURE OF STRENGTH--GUMMY omega-3 fatty acids-fish oil [Fish Oil] 360-1,200 mg capsule 1 cap PO DAILY Centrum Silver 400-250 mcg tablet,chewable 1 tab PO DAILY vitamin B complex capsule 1 cap PO DAILY ascorbic acid (vitamin C) 1,000 mg tablet 1 gm PO DAILY Referrals Referrals: Torey Glasogw MD [Primary Care Provider] -
[2022-07-20] MEDS ORDERED: MoRPHine SULFATE 4 MG/ML 1 ML CARP\\VIAL IV STA ×2 (18:10→22:09)
[2022-07-20] MEDS ORDERED: LIDOCAINE 5% 1 PATCH TD STA (18:15)
[2022-07-20 19:01] LABS: Alanine Aminotransferase 32 U/L (7-52); Albumin Globulin Ratio 1.5 (0.9-2); Albumin Level 4.5 gm/dl (3.4-5.0); Alkaline Phosphatase 64 U/L (34-104); Anion Gap 8 (3-11); Aspartate Aminotransferase 25 U/L (13-39); BUN Creatinine Ratio 18.3 (10-20); Bilirubin,Total 1.3 mg/dl (0.2-1.0); Blood Urea Nitrogen 22 mg/dl (6-23); Calcium 9.6 mg/dl (8.6-10.3); Carbon Dioxide 27 mmol/L (21-32); Chloride 104 mmol/L (98-107); Est GFR (African American) 71.1 ml/min; Est GFR (Non-African American) 61.3 ml/min; Globulin 3.1 gm/dl (2.5-4.0); Glucose 96 mg/dl (70-99(Fasting)); Potassium 3.9 mmol/L (3.5-5.1); Sodium 139 mmol/L (136-145); Total Protein 7.6 gm/dl (6.0-8.3)
[2022-07-20 19:16] LABS: Basophils # (auto) 0.09 K/uL (0-0.2); Basophils % (auto) 1.2 %; Eosinophils # (auto) 0.32 K/uL (0-0.50); Eosinophils % (auto) 4.2 %; Hematocrit (blood only) 43.5 % (42.0-52.0); Hemoglobin 14.8 g/dl (14.0-18.0); Immature Granulocytes # (auto) 0.03 K/uL (0.01-0.20); Immature Granulocytes % (auto) 0.4 %; Lymphocytes # (auto) 1.69 K/uL (1.2-3.4); Mean Corpuscular Hemoglobin 29.4 pg (25.0-34.0); Mean Corpuscular Volume 86.5 fL (80.0-100.0); Mean Platelet Volume 11.5 fL (9.4-12.4); Monocytes # (auto) 0.53 K/uL (0.11-0.59); Monocytes % (auto) 6.9 %; Neutrophils # (auto) 5.01 K/uL (1.40-6.50); Neutrophils % (auto) 65.3 %; Platelet Count 159 K/uL (130-400); RDW Standard Deviation 44.5 fL (36.4-46.3); Red Blood Count 5.03 M/uL (4.70-6.10); White Blood Count 7.67 K/ul (4.8-10.8)
[2022-07-20] MEDS ORDERED: OPTIRAY 320 100ml IV ONE (19:56)
--- NOTE | 2022-07-20 20:42 | CT Scan Report ---
Exam(s): CT ABDOMEN + PELVIS With Contrast IV Amt: 89ml EXAM: CT Abdomen and Pelvis With Intravenous Contrast CLINICAL HISTORY: Reason for exam: seemingly atraumatic lumbar radicular pain. TECHNIQUE: Axial computed tomography images of the abdomen and pelvis with intravenous contrast. CTDI is 10.15 mGy and DLP is 559.57 mGy-cm. Automated exposure control was utilized for the study. A dose lowering technique was utilized adhering to the principles of ALARA. CONTRAST: Patient received 89ml of IV contrast COMPARISON: CT abdomen/pelvis on 08/28/2019 FINDINGS: Lung bases: Unremarkable. No mass. No consolidation. ABDOMEN: Liver: Small inferior right hepatic cyst. Gallbladder and bile ducts: Prior cholecystectomy. Probable mild postcholecystectomy ductal ectasia. Pancreas: Unremarkable. No mass. No ductal dilation. Spleen: Unremarkable. No splenomegaly. Adrenals: Unremarkable. No mass. Kidneys and ureters: Mild scarring of the left kidney. No hydronephrosis or obstructing stone. Stomach and bowel: Diverticulosis without evidence of diverticulitis. Evaluation of the stomach is limited by underdistention. Moderate stool in the colon. No small bowel obstruction. PELVIS: Appendix: Normal appendix. Bladder: Unremarkable. No mass. Reproductive: Prostatectomy changes. Vasectomy clips. ABDOMEN and PELVIS: Intraperitoneal space: Unremarkable. No free air. No significant fluid collection. Bones/joints: Degenerative changes of the spine. Please see accompanying lumbar spine CT for further details. No acute fracture. No dislocation. Soft tissues: Small fat-containing bilateral inguinal hernias. Small fat-containing umbilical hernia. Vasculature: Phleboliths in the pelvis. Atherosclerotic changes of the vasculature. No aortic aneurysm or dissection. Lymph nodes: Unremarkable. No enlarged lymph nodes. IMPRESSION: No acute findings in the abdomen or pelvis. Degenerative changes of the spine. Please see accompanying lumbar spine CT for further details. Electronically signed by: Juan Pablo Eason M.D. 07/20/22 20:41 PM
--- NOTE | 2022-07-20 21:10 | CT Scan Report ---
Exam(s): CT L SPINE With Contrast IV Amt: 89ml EXAM: CT Lumbar Spine With Intravenous Contrast CLINICAL HISTORY: Reason for exam: seemingly atraumatic lumbar radiculopathy. TECHNIQUE: Axial computed tomography images of the lumbar spine with intravenous contrast. CTDI is 10.15 mGy and DLP is 559.57 mGy-cm. Automated exposure control was utilized for the study. A dose lowering technique was utilized adhering to the principles of ALARA. CONTRAST: Patient received 89ml of IV contrast COMPARISON: Lumbar spine radiographs on 01/05/2020 FINDINGS: Bones: Normal alignment. No acute fracture. Irregularity of the endplates at L3-4 and inferior endplate of L4 may be secondary to degenerative changes. An infectious/inflammatory process such as discitis/osteomyelitis is not excluded. Irregularity of the endplates is present on the prior exam in 2019 but to a lesser extent. Disc spaces: No subluxation. Degenerative changes of the spine. Mild to moderate spinal canal stenosis at L3-4. Moderate spinal canal stenosis at L4-5. Moderate to severe neural foraminal stenoses at L3-4 and L4-5. Mild neural foraminal stenoses at L5-S1. Soft tissues: Normal. Other: Normal. IMPRESSION: 1. No acute traumatic abnormality. 2. Mild to moderate spinal canal stenosis at L3-4. Moderate spinal canal stenosis at L4-5. Moderate to severe neural foraminal stenoses at L3-4 and L4-5. Mild neural foraminal stenoses at L5-S1. 3. Irregularity of the endplates at L3-4 and inferior endplate of L4 may be secondary to degenerative changes. Irregularity of the endplates is present on the prior exam in 2019 but to a lesser extent. An infectious/inflammatory process such as discitis/osteomyelitis is not excluded. 4. Further evaluation could be performed with MRI if clinically indicated. Electronically signed by: Juan Pablo Eason M.D. 07/20/22 21:09 PM
[2022-07-20] MEDS ORDERED: diazePAM 2 MG TABLET PO ONE (22:09)
[2022-07-20] MEDS ORDERED: dexAMETHasone**PF** 10 MG/ML VIAL IV ONE (22:09)
--- NOTE | 2022-07-20 23:01 | History & Physical Report ---
Date of Service July 20, 2022 Assessment & Plan (1) Back pain: Plan: 67-year-old male with history of chronic back pain presenting with severe, acute low back pain with associated radicular symptoms. Strength, sensation and reflexes are intact. No bowel or bladder involvement. No fall/trauma/fever/chills. Observation to medical floor Scheduled Tylenol 1 g p.o. 3 times daily Continue Lidoderm patch Toradol 50 mg IV every 6 hours Morphine as needed as needed PT/OT evaluation Monitor response to above therapies. If pain continues or worsens would obtain MRI. Of note, patient reports he is very claustrophobic and requires medication for MRI (2) Type 2 diabetes mellitus: Plan: Borderline DM. Last BiaK0T=1.2 on 04/26/2022 Hold metformin Monitor blood sugars -ISS (3) Hypertension: Plan: Blood pressure mildly elevated in setting of acute pain Pain control as above Continue losartan 100 mg p.o. daily Continue amlodipine 7.5 mg p.o. daily Continue to monitor (4) Hyperlipidemia: Plan: Chronic. Stable. Continue atorvastatin 40 mg p.o. daily (5) GERD (gastroesophageal reflux disease): Plan: Chronic. Stable. Continue Protonix 40 mg p.o. daily History of Present Illness Chief Complaint: Back pain, acute Primary Care Provider: Torey Glasgow MD Juliano Lui is a 67yo male with history of HTN, HLP, DM and chronic low back pain secondary to bulging discs presenting with acute, severe low back pain. Patient was in his usual state of health this afternoon. He was at work when he stood up from his desk around noon he had acute onset of central low back pain that radiated down bilateral thighs laterally and into his feet. He felt unsteady and had to balance himself on his filing cabinet. He tried to walk upstairs shortly after and was unable to lift his legs due to pain. Still with severe pain, rotating down lateral thighs and into his feet. He denies changes in bowels or bladder. Denies trauma. Denies fever/chills or recent illness. He denies numbness or focal weakness but feels that his mobility is limited secondary to pain. In the ER patient is afebrile, mildly hypertensive otherwise hemodynamically stable, ER course: Dexamethasone 10 mg IV Morphine 4 mg IV x 2 Diazepam 2 mg p.o. Toradol 15 mg IV Allergies Allergy/AdvReac Type Severity Reaction Status Date / Time No Known Allergies Allergy Unknown Verified 07/20/22 22:37 Home Medications Medication Instructions Recorded Confirmed Type multivit with min-folic 1 tab PO DAILY 10/18/18 07/20/22 History acid-lutein 400 mcg-250 mcg chewable tablet (Centrum Silver) omega-3 fatty acids-fish oil 360 1 cap PO DAILY 10/18/18 07/20/22 History mg-1,200 mg capsule (Fish Oil) vitamin B complex 1 cap PO DAILY 10/18/18 07/20/22 History ascorbic acid (vitamin C) 1,000 mg 1 gm PO DAILY 08/13/19 07/20/22 History tablet losartan 100 mg tablet 100 mg PO DAILY #90 tabs 07/05/21 07/20/22 Rx pantoprazole 40 mg tablet,delayed 40 mg PO QDB #90 tabs 07/05/21 07/20/22 Rx release cholecalciferol (vitamin D3) 25 25 mcg PO DAILY 11/01/21 07/20/22 History mcg (1,000 unit) capsule amlodipine 5 mg tablet 7.5 mg PO DAILY #135 tabs 04/24/22 07/20/22 Rx atorvastatin 40 mg tablet 40 mg PO DAILY #90 tabs 04/26/22 07/20/22 Rx metformin 500 mg tablet,extended 500 mg PO DAILY #90 tabs 04/26/22 07/20/22 Rx release 24hr Past Med/Surg History Medical History Chest pain Colonic polyp Duodenal stenosis GERD (gastroesophageal reflux disease) Hyperlipidemia Hypertension Pre-diabetes Prostate cancer Unintentional weight loss Surgical History History of bunionectomy History of prostatectomy Hx of foot surgery Family History Mother Hypertension Denies family history of Ovarian cancer Prostate cancer Breast cancer Lung cancer Colorectal cancer Social History Smoking Status: Never smoker Second Hand Exposure: No; Do You Dip or Chew Tobacco: No; Hx Alcohol Use: Yes Alcohol type: beer Alcohol Intake Frequency: Monthly or Less Hx Substance Use: No Preferred Language: [place] Islander Communication Ability: Effective Visual Impairment: Limited Hearing Ability: Normal Manager Outreach Required: No Beliefs That Will Affect Care: None marital status: Current Living Situation: Spouse current occupational status: employed Feels Safe at Home: Yes Safety Concerns: Feels Safe At This Time Childhood Exposure to Second-Hand Smoke: Yes (mother) Diet: ideal protein, low carbohydrate and low salt caffeine: Yes Dental Care, Regularly: Yes Physical Activity Frequency: Does not Exercise Seatbelt Use: always Sunscreen Use: Yes Assistive Devices: None Review of Systems Review of Systems: All systems reviewed & are unremarkable except as noted in HPI & below Physical Exam Physical Exam: General: patient resting comfortably, NAD, non-toxic in appearance, AA&O x 4 Skin: warm, dry, intact, no rashes or lesions HEENT: NC/AT, PERRL, EOMI, anicteric sclera, conjunctiva without injection, external ear normal to inspection and nontender, nares patent, moist mucus membranes, dentition intact, no oropharyngeal lesions, neck supple, trachea midline, no LAD, no thyromegaly, no JVD Heart: +S1/S2, regular, no m/r/g Lungs: equal air entry bilaterally, no rales/rhonchi/wheezes Abd: +BS, soft, NT/ND, no masses/organomegaly/ascites Ext: warm, 2+ pulses in UE/LE bilaterally, no clubbing/cyanosis or edema Neuro: nonfocal, patient AA&O x 4, speech intact, no facial droop, moving all extremities on command with equal strength 5/5 Severe LBP, limited mobility Results & Data Results & Data Vital Signs (Past 12 Hours) Vital Signs Temp Pulse Pulse Resp BP BP Pulse Ox 07/20/22 21:58 64 96 07/20/22 21:57 62 16 160/86 H 94 07/20/22 17:30 37 C 67 18 166/90 H 97 O2 Del Method 07/20/22 21:58 Room Air 07/20/22 21:57 Room Air 07/20/22 17:30 Room Air Laboratory Results Laboratory Results WBC 7.67 K/ul (4.8-10.8) 07/20/22 18:30 RBC 5.03 M/uL (4.70-6.10) 07/20/22 18: Hgb 14.8 g/dl (14.0-18.0) 07/20/22 18: Hct 43.5 % (42.0-52.0) 07/20/22 18: MCV 86.5 fL (80.0-100.0) 07/20/22 18: MCH 29.4 pg (25.0-34.0) 07/20/22 18: MCHC 34.0 g/dL (32.0-36.0) 07/20/22 18: RDW Std Deviation 44.5 fL (36.4-46.3) 07/20/22: RDW Coeff of [place] 14.0 % (11.5-14.5) 07/20/22: Plt Count 159 K/uL (130-400) 07/20/22 18: MPV 11.5 fL (9.4-12.4) 07/20/22 18: Immature Gran % (Auto) 0.4 % 07/20/22 18: Neut % (Auto) 65.3 % 07/20/22 18:30 Lymph % (Auto) 22.0 % 07/20/22 18: [place] % (Auto) 6.9 % 07/20/22 18: Eos % (Auto) 4.2 % 07/20/22 18: Baso % (Auto) 1.2 % 07/20/22 18: Neut # (Auto) 5.01 K/uL (1.40-6.50) 07/20/22 18: Lymph # (Auto) 1.69 K/uL (1.2-3.4) 07/20/22 18: [place] # (Auto) 0.53 K/uL (0.11-0.59) 07/20/22 18: Eos # (Auto) 0.32 K/uL (0-0.50) 07/20/22 18: Baso # (Auto) 0.09 K/uL (0-0.2) 07/20/22 18: Immature Gran # (Auto) 0.03 K/uL (0.01-0.20) 07/20/22 18: Sodium 139 mmol/L (136-145) 07/20/22 18:30 Potassium 3.9 mmol/L (3.5-5.1) 07/20/22 18:30 Chloride 104 mmol/L (98-107) 07/20/22 18:30 Carbon Dioxide 27 mmol/L (21-32) 07/20/22 18:30 Anion Gap 8 (3-11) 07/20/22 18:30 BUN 22 mg/dl (6-23) 07/20/22 18:30 Creatinine 1.20 mg/dl (0.6-1.4) 07/20/22 18:30 Est Cr Clr Drug Dosing Not Reportable 07/20/22 18:30 Est GFR ( Amer) 71.1 ml/min 07/20/22 18:30 Est GFR (Non-Af Amer) 61.3 ml/min 07/20/22 18:30 BUN/Creatinine Ratio 18.3 (10-20) 07/20/22 18:30 Glucose 96 mg/dl (70-99(Fasting)) 07/20/22 18:30 Calcium 9.6 mg/dl (8.6-10.3) 07/20/22 18:30 Total Bilirubin 1.3 mg/dl (0.2-1.0) H 07/20/22 18:30 AST 25 U/L (13-39) 07/20/22 18:30 ALT 32 U/L (7-52) 07/20/22 18:30 Alkaline Phosphatase 64 U/L (34-104) 07/20/22 18:30 C-Reactive Protein < 0.50 mg/dl (0-0.5) 07/20/22 18:30 Total Protein 7.6 gm/dl (6.0-8.3) 07/20/22 18:30 Albumin 4.5 gm/dl (3.4-5.0) 07/20/22 18:30 Globulin 3.1 gm/dl (2.5-4.0) 07/20/22 18:30 Albumin/Globulin Ratio 1.5 (0.9-2) 07/20/22 18:30 SARS-CoV-2, RNA, NAAT NEGATIVE (NEGATIVE) 07/20/22 23:05 Impressions Abdomen/Pelvis CT 07/20/22 18:10 Exam(s): CT ABDOMEN + PELVIS With Contrast IV Amt: 89ml EXAM: CT Abdomen and Pelvis With Intravenous Contrast CLINICAL HISTORY: Reason for exam: seemingly atraumatic lumbar radicular pain. TECHNIQUE: Axial computed tomography images of the abdomen and pelvis with intravenous contrast. CTDI is 10.15 mGy and DLP is 559.57 mGy-cm. Automated exposure control was utilized for the study. A dose lowering technique was utilized adhering to the principles of ALARA. CONTRAST: Patient received 89ml of IV contrast COMPARISON: CT abdomen/pelvis on 08/28/2019 FINDINGS: Lung bases: Unremarkable. No mass. No consolidation. ABDOMEN: Liver: Small inferior right hepatic cyst. Gallbladder and bile ducts: Prior cholecystectomy. Probable mild postcholecystectomy ductal ectasia. Pancreas: Unremarkable. No mass. No ductal dilation. Spleen: Unremarkable. No splenomegaly. Adrenals: Unremarkable. No mass. Kidneys and ureters: Mild scarring of the left kidney. No hydronephrosis or obstructing stone. Stomach and bowel: Diverticulosis without evidence of diverticulitis. Evaluation of the stomach is limited by underdistention. Moderate stool in the colon. No small bowel obstruction. PELVIS: Appendix: Normal appendix. Bladder: Unremarkable. No mass. Reproductive: Prostatectomy changes. Vasectomy clips. ABDOMEN and PELVIS: Intraperitoneal space: Unremarkable. No free air. No significant fluid collection. Bones/joints: Degenerative changes of the spine. Please see accompanying lumbar spine CT for further details. No acute fracture. No dislocation. Soft tissues: Small fat-containing bilateral inguinal hernias. Small fat-containing umbilical hernia. Vasculature: Phleboliths in the pelvis. Atherosclerotic changes of the vasculature. No aortic aneurysm or dissection. Lymph nodes: Unremarkable. No enlarged lymph nodes. IMPRESSION: No acute findings in the abdomen or pelvis. Degenerative changes of the spine. Please see accompanying lumbar spine CT for further details. Electronically signed by: Juan Pablo Eason M.D. 07/20/22 20:[address] 07/20/22 18:17 Exam(s): CT L SPINE With Contrast IV Amt: 89ml EXAM: CT Lumbar Spine With Intravenous Contrast CLINICAL HISTORY: Reason for exam: seemingly atraumatic lumbar radiculopathy. TECHNIQUE: Axial computed tomography images of the lumbar spine with intravenous contrast. CTDI is 10.15 mGy and DLP is 559.57 mGy-cm. Automated exposure control was utilized for the study. A dose lowering technique was utilized adhering to the principles of ALARA. CONTRAST: Patient received 89ml of IV contrast COMPARISON: Lumbar spine radiographs on 01/05/2020 FINDINGS: Bones: Normal alignment. No acute fracture. Irregularity of the endplates at L3-4 and inferior endplate of L4 may be secondary to degenerative changes. An infectious/inflammatory process such as discitis/osteomyelitis is not excluded. Irregularity of the endplates is present on the prior exam in 2019 but to a lesser extent. Disc spaces: No subluxation. Degenerative changes of the spine. Mild to moderate spinal canal stenosis at L3-4. Moderate spinal canal stenosis at L4-5. Moderate to severe neural foraminal stenoses at L3-4 and L4-5. Mild neural foraminal stenoses at L5-S1. Soft tissues: Normal. Other: Normal. IMPRESSION: 1. No acute traumatic abnormality. 2. Mild to moderate spinal canal stenosis at L3-4. Moderate spinal canal stenosis at L4-5. Moderate to severe neural foraminal stenoses at L3-4 and L4-5. Mild neural foraminal stenoses at L5-S1. 3. Irregularity of the endplates at L3-4 and inferior endplate of L4 may be secondary to degenerative changes. Irregularity of the endplates is present on the prior exam in 2019 but to a lesser extent. An infectious/inflammatory process such as discitis/osteomyelitis is not excluded. 4. Further evaluation could be performed with MRI if clinically indicated. Electronically signed by: Juan Pablo Eason M.D. 07/20/22 21:09 PM PG Care Time/CCT Total # of Minutes Spent Total Time Spent with Patient: Total time spent is greater than 50% in coordination of care (as documented) at patient's floor/unit and/or counseling patient: Coding Level of Care Code 56316 INT INP/OBS CARE 2/55MIN Diagnoses Back pain M54.9 Type 2 diabetes mellitus E11.9 Hypertension I10 Hyperlipidemia E78.5 GERD (gastroesophageal reflux disease) K21.9
[2022-07-21] MEDS ORDERED: KETOROLAC TROMETHAMINE 15 MG/ML VIAL IV PRN (00:45)
[2022-07-21] MEDS ORDERED: MoRPHine SULFATE 4 MG/ML 1 ML CARP\\VIAL IV PRN (00:45)
[2022-07-21] MEDS ORDERED: MoRPHine SULFATE 2 MG/ML CARP IV PRN (00:45)
[2022-07-21 01:20] LABS: C Reactive Protein < 0.50 mg/dl (0-0.5)
[2022-07-21] MEDS ORDERED: GLUCOSE 10 TAB/TUBE PO PRN (02:28)
[2022-07-21] MEDS ORDERED: GLUCOSE 40% GEL 15 GM TUBE PO PRN (02:28)
[2022-07-21] MEDS ORDERED: GLUCAGON FOR INJ 1 MG VIAL SQ PRN (02:28)
[2022-07-21] MEDS ORDERED: DEXTROSE 50% 50 ML SYRINGE IV PRN (02:28)
[2022-07-21] MEDS ORDERED: CARBOHYDRATES FOR HYPOGLYCEMIA PO PRN (02:28)
[2022-07-21] MEDS: ACETAMINOPHEN 500 MG TAB PO SCH ×3 (05:08→21:22)
[2022-07-21 07:44] LABS: Hematocrit (blood only) 40.9 % (42.0-52.0); Hemoglobin 14.6 g/dl (14.0-18.0); Mean Corpuscular Hgb Conc 35.7 g/dL (32.0-36.0); Mean Corpuscular Volume 84.2 fL (80.0-100.0); Mean Platelet Volume 11.4 fL (9.4-12.4); Platelet Count 208 K/uL (130-400); RDW Coefficient of Variation 13.6 % (11.5-14.5); RDW Standard Deviation 41.5 fL (36.4-46.3); Red Blood Count 4.86 M/uL (4.70-6.10); White Blood Count 6.94 K/ul (4.8-10.8)
[2022-07-21 08:13] LABS: Calcium 9.2 mg/dl (8.6-10.3); Potassium 4.3 mmol/L (3.5-5.1)
[2022-07-21 08:19] LABS: BUN Creatinine Ratio 19.8 (10-20); Creatinine Clr Calc Pharmacy 67.5 ml/min; Est GFR (African American) 70.4 ml/min; Est GFR (Non-African American) 60.7 ml/min
[2022-07-21] MEDS: ATORVASTATIN 40 MG TAB PO SCH (09:00)
[2022-07-21] MEDS: amLODIPine BESYLATE 5 MG TAB PO SCH (09:00)
[2022-07-21] MEDS: LOSARTAN POTASSIUM 50 MG TAB PO SCH (09:01)
[2022-07-21] MEDS: PANTOprazole 40 MG TAB PO SCH (09:01)
[2022-07-21] MEDS: INSULIN ASPART PER UNIT CHARGE SC SCH ×4 (09:01→20:09)
[2022-07-21] MEDS: LIDOCAINE 5% 1 PATCH TD SCH (09:01)
[2022-07-21] MEDS ORDERED: LORazepam 2 MG/1 ML VIAL IV ONE (15:19)
[2022-07-21] MEDS ORDERED: LORazepam 2 MG/1 ML VIAL IV STA (17:55)
--- NOTE | 2022-07-21 19:03 | Hospitalist Progress Note ---
Date of Service July 21, 2022 Assessment & Plan (1) Acute lumbar radiculopathy: Plan: This patient is a 67-year-old male with a history of lumbar spinal stenosis and chronic lower back pain, prostate cancer in remission, HTN, hyperlipidemia, who presented with severe, acute low back pain with associated radicular symptoms down bilateral lower extremities. Strength, sensation and reflexes are intact. No bowel or bladder involvement although has had new onset constipation over the last 2 months. No fall/trauma/fever/chills. 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 Bailey will be in to see the patient on 07/22 after reviewing MRI Continue scheduled Tylenol 1 g p.o. 3 times daily Continue Lidoderm patch Continue Toradol as needed Morphine as needed as needed -Restart Decadron 4 mg IV once daily-was given 10 mg IV x1 in the ER on admission PT/OT evaluation (2) Lumbar spinal stenosis: Plan: As noted above (3) Type 2 diabetes mellitus: Plan: With newly diagnosed DM. Last WbbY2V=6.2 on 04/26/2022 With some hyperglycemia here secondary to steroids Hold metformin Monitor blood sugars -ISS-tighten down NovoLog today for hyperglycemia -Consider adding NPH in the morning if blood sugars remain elevated while on steroids (4) Hypertension: Plan: Blood pressure mildly elevated in setting of acute pain initially now improved Pain control as above Continue losartan 100 mg p.o. daily Continue amlodipine 7.5 mg p.o. daily Continue to monitor (5) Hyperlipidemia: Plan: Chronic. Stable. Continue atorvastatin 40 mg p.o. daily (6) GERD (gastroesophageal reflux disease): Plan: Chronic. Stable. Continue Protonix 40 mg p.o. daily Plan DVT prophylaxis-add SCDs Disposition-continues to medical/surgical unit, awaiting orthopedic spine evaluation on Sunday. Possibly discharge to home if much improved but await orthopedic spine opinion Admission and Anticipated Discharge Date Admission Date: July 20, 2022 Subjective Patient reports overall feeling much improved since yesterday. Still some pain in the lower back, but no longer having radiating pain down the legs. He was able to ambulate to the bathroom and back a few times today. Has been having issues with significant constipation over the last 2 months but no incontinence to stool. He is able to void. Denies numbness or tingling down the legs. Denies any other issues. I discussed his care with orthopedic spine surgery who recommended MRI of the lumbar spine Physical Exam Constitutional: WD/WN, vitals as above Respiratory: normal respiratory effort, lungs clear to auscultation Cardiovascular: RRR, no murmur, no edema Gastrointestinal (Abdomen): normal bowel sounds, soft, nontender, no hepatosplenomegaly Neurologic: 5/5 strength throughout lower extremities bilaterally, with some giveaway due to lower back pain with hip flexor testing Sensation intact to light touch throughout lower extremities DTRs 2+ patellar and Achilles bilaterally Psychiatric: A+Ox3, euthymic affect Results & Data Results & Data Vital Signs (Past 12 Hours) Vital Signs Temp Pulse Resp BP Pulse Ox O2 Del Method 07/21/22 14:22 36.5 C 79 16 115/73 93 Room Air 07/21/22 07:31 36.4 C L 68 17 142/78 H 93 Room Air Laboratory Results CBC, BMP, LFTs, CRP reviewed PG Care Time/CCT Total # of Minutes Spent Total Time Spent with Patient: Total time spent is greater than 50% in coordination of care (as documented) at patient's floor/unit and/or counseling patient: Coding Level of Care Code 62364 SUB INP/OBS CARE 2/35MIN Diagnoses Acute lumbar radiculopathy M54.16 Lumbar spinal stenosis M48.061 Type 2 diabetes mellitus E11.9 Hypertension I10 Hyperlipidemia E78.5 GERD (gastroesophageal reflux disease) K21.9
[2022-07-21] MEDS: dexAMETHasone 4 MG in SYRINGE 0 ML IV SCH (20:09)
--- NOTE | 2022-07-21 22:07 | Magnetic Resonance Report ---
Exam(s): MRI L SPINE Without Contrast EXAM: MR Lumbar Spine Without Intravenous Contrast CLINICAL HISTORY: Lumbar radiculopathy. TECHNIQUE: Magnetic resonance images of the lumbar spine without intravenous contrast in multiple planes. COMPARISON: CT lumbar spine 07/20/2022 FINDINGS: Vertebrae: Degenerative endplate changes are most prominent at L3-L4 and L4-L5. No fracture or malalignment. Spinal cord: Unremarkable. Normal signal. Soft tissues: Unremarkable. DISCS/SPINAL CANAL/NEURAL FORAMINA: L1-L2: Mild symmetric disc bulge and facet hypertrophy results in minimal bilateral neural foraminal stenosis. L2-L3: Mild symmetric disc bulge and facet hypertrophy with ligamentum flavum hypertrophy results in mild bilateral neural foraminal stenosis. There is minimal spinal canal stenosis. L3-L4: Moderate symmetric disc bulge, facet hypertrophy and ligamentum flavum hypertrophy of L3-L4 results in moderate to severe bilateral neural foraminal stenosis. There is moderate spinal canal stenosis. L4-L5: Moderate symmetric disc bulge, facet hypertrophy and ligamentum flavum hypertrophy of L4-L5 results in moderate to severe bilateral neural foraminal stenosis and moderate spinal canal stenosis. L5-S1: Central disc bulge and facet hypertrophy results in minimal bilateral neural femoral stenosis and mild spinal canal stenosis. IMPRESSION: 1. Moderate symmetric disc bulge, facet hypertrophy and ligamentum flavum hypertrophy of L3-L4 results in moderate to severe bilateral neural foraminal stenosis. There is moderate spinal canal stenosis. 2. Moderate symmetric disc bulge, facet hypertrophy and ligamentum flavum hypertrophy of L4-L5 results in moderate to severe bilateral neural foraminal stenosis and moderate spinal canal stenosis. Electronically signed by: Jenise Lee MD 07/21/22 22:06 PM
[2022-07-22] MEDS: ACETAMINOPHEN 500 MG TAB PO SCH ×2 (05:33→13:09)
--- NOTE | 2022-07-22 08:53 | Orthopedic Consultation ---
Date of Consultation July 22, 2022 Assessment & Plan (1) Neurogenic claudication due to lumbar spinal stenosis: MRI does demonstrate evidence of neuroforaminal disease L3-L4 and left with significant subarticular stenosis L4-5 bilaterally. I strongly suspect this is the source of his neurogenic claudication. I did discuss with the patient spinal stenosis and the sequelae. He is responding to steroids. From orthopedic standpoint he is safe to return home. We will have him follow-up in the next week in our office and probably undergo interventional pain management. History of Present Illness Reason for Consultation: Bilaterally pain Attending Physician: Annabelle Connolly MD History of Present Illness This is a 67-year-old male who presents with severe bilateral leg pain. He does have a history of having some sensation of weakness with prolonged walking and ambulation. Is been going on for several months. His most recent episode was not related to any specific trauma fall incident. He was just getting out of a chair. He is responded to IV steroids and feels better this morning. He states has been ambulating the halls. Allergies Allergy/AdvReac Type Severity Reaction Status Date / Time No Known Allergies Allergy Unknown Verified 07/20/22 22:37 Home Medications Medication Instructions Recorded Confirmed Type multivit with min-folic 1 tab PO DAILY 10/18/18 07/20/22 History acid-lutein 400 mcg-250 mcg chewable tablet (Centrum Silver) omega-3 fatty acids-fish oil 360 1 cap PO DAILY 10/18/18 07/20/22 History mg-1,200 mg capsule (Fish Oil) vitamin B complex 1 cap PO DAILY 10/18/18 07/20/22 History ascorbic acid (vitamin C) 1,000 mg 1 gm PO DAILY 08/13/19 07/20/22 History tablet losartan 100 mg tablet 100 mg PO DAILY #90 tabs 07/05/21 07/20/22 Rx pantoprazole 40 mg tablet,delayed 40 mg PO QDB #90 tabs 07/05/21 07/20/22 Rx release cholecalciferol (vitamin D3) 25 25 mcg PO DAILY 11/01/21 07/20/22 History mcg (1,000 unit) capsule amlodipine 5 mg tablet 7.5 mg PO DAILY #135 tabs 04/24/22 07/20/22 Rx atorvastatin 40 mg tablet 40 mg PO DAILY #90 tabs 04/26/22 07/20/22 Rx metformin 500 mg tablet,extended 500 mg PO DAILY #90 tabs 04/26/22 07/20/22 Rx release 24hr Patient History Medical History (Updated 07/22/22 @ 08:52 by Ezra Jones DO) Chest pain Colonic polyp Duodenal stenosis GERD (gastroesophageal reflux disease) Hyperlipidemia Hypertension Lumbar spinal stenosis Pre-diabetes Prostate cancer Unintentional weight loss Surgical History History of bunionectomy History of prostatectomy Hx of foot surgery Family History Mother Hypertension Denies family history of Ovarian cancer Prostate cancer Breast cancer Lung cancer Colorectal cancer Social History Smoking Status: Never smoker Second Hand Exposure: No; Do You Dip or Chew Tobacco: No; Hx Alcohol Use: Yes Alcohol type: beer Alcohol Intake Frequency: Monthly or Less Hx Substance Use: No Preferred Language: [place] Communication Ability: Effective Visual Impairment: Limited Hearing Ability: Normal Work Checker Required: No Beliefs That Will Affect Care: None marital status: Current Living Situation: Spouse current occupational status: employed Feels Safe at Home: Yes Safety Concerns: Feels Safe At This Time Childhood Exposure to Second-Hand Smoke: Yes (mother) Diet: ideal protein, low carbohydrate and low salt caffeine: Yes Dental Care, Regularly: Yes Physical Activity Frequency: Does not Exercise Seatbelt Use: always Sunscreen Use: Yes Assistive Devices: None Physical Exam Physical Exam: On exam he is sitting in bed appears comfortable. Is 5.5 dorsiflexion quadriceps. Sensory symmetric and intact. Results & Data Vital Signs (Past 12 Hours) Vital Signs Temp Pulse Resp BP Pulse Ox O2 Del Method 07/22/22 07:07 36.8 C 69 16 133/78 93 Room Air 07/21/22 22:35 36.8 C 70 16 139/83 94 Room Air
[2022-07-22] MEDS: ATORVASTATIN 40 MG TAB PO SCH (09:51)
[2022-07-22] MEDS: LOSARTAN POTASSIUM 50 MG TAB PO SCH (09:51)
[2022-07-22] MEDS: dexAMETHasone 4 MG in SYRINGE 0 ML IV SCH (09:51)
[2022-07-22] MEDS: LIDOCAINE 5% 1 PATCH TD SCH (09:52)
[2022-07-22] MEDS: amLODIPine BESYLATE 5 MG TAB PO SCH (09:52)
[2022-07-22] MEDS: PANTOprazole 40 MG TAB PO SCH (09:53)
[2022-07-22] MEDS: INSULIN ASPART PER UNIT CHARGE SC SCH ×3 (09:54→17:39)
--- NOTE | 2022-07-22 14:52 | Discharge Summary ---
Date of Service July 22, 2022 Admission HPI Per Admitting Provider Juliano Lui is a 67yo male with history of HTN, HLP, DM and chronic low back pain secondary to bulging discs presenting with acute, severe low back pain. Patient was in his usual state of health this afternoon. He was at work when he stood up from his desk around noon he had acute onset of central low back pain that radiated down bilateral thighs laterally and into his feet. He felt unsteady and had to balance himself on his filing cabinet. He tried to walk upstairs shortly after and was unable to lift his legs due to pain. Still with severe pain, rotating down lateral thighs and into his feet. He denies changes in bowels or bladder. Denies trauma. Denies fever/chills or recent illness. He denies numbness or focal weakness but feels that his mobility is limited secondary to pain. In the ER patient is afebrile, mildly hypertensive otherwise hemodynamically stable, ER course: Dexamethasone 10 mg IV Morphine 4 mg IV x 2 Diazepam 2 mg p.o. Toradol 15 mg IV Admission Exam Per Admitting Provider General: patient resting comfortably, NAD, non-toxic in appearance, AA&O x 4 Skin: warm, dry, intact, no rashes or lesions HEENT: NC/AT, PERRL, EOMI, anicteric sclera, conjunctiva without injection, external ear normal to inspection and nontender, nares patent, moist mucus membranes, dentition intact, no oropharyngeal lesions, neck supple, trachea midline, no LAD, no thyromegaly, no JVD Heart: +S1/S2, regular, no m/r/g Lungs: equal air entry bilaterally, no rales/rhonchi/wheezes Abd: +BS, soft, NT/ND, no masses/organomegaly/ascites Ext: warm, 2+ pulses in UE/LE bilaterally, no clubbing/cyanosis or edema Neuro: nonfocal, patient AA&O x 4, speech intact, no facial droop, moving all extremities on command with equal strength 5/5 Severe LBP, limited mobility Principal Diagnosis Neurogenic claudication Discharge Exam Constitutional WD/WN, vitals as above cooperative; no acute distress Eyes + anicteric sclerae ENMT external ear and nose normal, oropharynx normal Neck trachea midline Respiratory normal respiratory effort; no cough Skin no rashes, warm and dry Neurologic moves all extremities Psychiatric A+Ox3, euthymic affect Discharge Data Allergies Allergy/AdvReac Type Severity Reaction Status Date / Time No Known Allergies Allergy Unknown Verified 07/20/22 22:37 Consultations 07/20/22 22:42 ED Decision to Admit Stat 07/21/22 10:36 Consult Orthopedic Surgery Routine Ordered Studies 07/20/22 18:10 CT abd pelvis IV con only Stat 07/20/22 18:17 CT lumbar spine w con Stat 07/21/22 15:15 MR lumbar spine wo con Urgent Hospital Course (1) Neurogenic claudication due to lumbar spinal stenosis: This patient is a 67-year-old male with a history of lumbar spinal stenosis and chronic lower back pain, prostate cancer in remission, HTN, hyperlipidemia, who presented with severe, acute low back pain with associated radicular symptoms down bilateral lower extremities. CT lumbar spine shows mild-moderate stenosis L3-L4, questionable osteomyelitis/d iscitis but more likely degenerative changes, moderate central canal stenosis L4-L5, and moderate-severe neuroforaminal bilateral stenosis at L3-L4 and L4-L5. L spine MRI showed evidence of neuroforaminal disease L3-L4 and left with significant subarticular stenosis L4-5 bilaterally, likely the source of his neurogenic claudication. Patient was treated with IV steroids and IV Toradol, to which he responded well. Consulted orthopedic spine surgery --> Dr. Lauro Jones recommend outpatient follow up in 1-2 weeks at which time additional intervention will be discussed. He was sent out on a steroid taper and directed to use Aleve and Tylenol for additional pain control. He was able to ambulate prior to discharge. (2) Lumbar spinal stenosis: Plan: As noted above (3) Type 2 diabetes mellitus: Plan: With newly diagnosed DM. Last WozL2X=0.2 on 04/26/2022 Anticipate elevated blood sugars while on steroids (4) Hypertension: Plan: Blood pressure mildly elevated in setting of acute pain initially now improved Continue losartan 100 mg p.o. daily Continue amlodipine 7.5 mg p.o. daily (5) Hyperlipidemia: Plan: Chronic. Stable. Continue atorvastatin 40 mg p.o. daily (6) GERD (gastroesophageal reflux disease): Plan: Chronic. Stable. Continue Protonix 40 mg p.o. daily Total Time Total Time Spent Total Time Spent (In Minutes): 35 Total Time Includes: Examination of the Patient, Discharge Planning and Medication Reconciliation Discharge Plan Discharge Items Patient Disposition: Home - Self-Care Reason For Visit: ACUTE BACK PAIN Discharge Diagnosis: Neurogenic claudication due to lumbar spinal stenosis Activity: Resume your previous activity Non-emergency contact: Primary Care Provider Call non-emergency contact if: your pain is not controlled Follow-up/Referrals: Torey Glasgow MD [Primary Care Provider] - Ezra Jones DO [Surgeon] - Diet: Carb Consistent or DM2 Addtl Attending Provider Instructions: You were hospitalized at [facility] for intractable back pain. An MRI of your low back was obtained which showed lumbar spinal stenosis, which is a narrowing of your spinal canal. You were treated with steroids and other pain medications and clinically improved while under our care. Please continue to take the steroid : dexamethasone 4mg on 07/23/22, then reduce dose to 2mg for the next 2 days, then stop. For additional pain control you may take Tylenol 1000mg three times daily and Aleve (naproxen) 220mg twice daily. Orthopedics was consulted and you saw Dr. Lauro Jones. He will see you in his clinic in 1-2 weeks . Pending Studies at Discharge: No Stand-Alone Forms: My [facility], Smoking Cessation Medications and DC Order Prescriptions: New dexamethasone 2 mg tablet 2 mg PO DAILY 3 Days Qty: 4 0RF Rx Instructions: Take 4mg (two of the 2mg tabs) on Day 1. Then take 2mg (1 tab) on Day 2 and Day 3. Then stop Continued pantoprazole 40 mg tablet,delayed release (DR/EC) 40 mg PO QDB Qty: 90 3RF losartan 100 mg tablet 100 mg PO DAILY Qty: 90 3RF amlodipine 5 mg tablet 7.5 mg PO DAILY Qty: 135 2RF atorvastatin 40 mg tablet 40 mg PO DAILY Qty: 90 3RF metformin 500 mg tablet extended release 24hr 500 mg PO DAILY Qty: 90 3RF cholecalciferol (vitamin D3) 25 mcg (1,000 unit) capsule 25 mcg PO DAILY Rx Instructions: PT UNSURE OF STRENGTH--GUMMY omega-3 fatty acids-fish oil [Fish Oil] 360-1,200 mg capsule 1 cap PO DAILY Centrum Silver 400-250 mcg tablet,chewable 1 tab PO DAILY vitamin B complex capsule 1 cap PO DAILY ascorbic acid (vitamin C) 1,000 mg tablet 1 gm PO DAILY Discharge Orders: Discharge Order (Routine); Ordered 07/22/22 Ordered By: Annabelle Connolly Admission Data Admit Date/Time: 07/20/22 23:00 Attending Provider: Annabelle Connolly Admit Provider: Tita Pardo Primary Care Provider: Torey Glasgow Other Providers: Tita Pardo ; Ezra Jones ; Dede Chris Other Interventions: Discharge Summary Assessment (RN) Last Done: 07/22/22 16:37 Coding Level of Care Code 39701 INP/OBS DISCH >30 MIN Diagnoses Neurogenic claudication due to lumbar spinal stenosis M48.062
== END 2022-07-22 19:08 | disposition home or self-care (01) ==
LOC: ED 17:25 → 3N 17:25 → SUATTDRO 23:00 → 3N 07-21 00:17